=== PATIENT | female | born 1935 | race Caucasian/White ===

== ENCOUNTER 2016-10-30 09:45 | Outpatient (CLI) | payer MEDICARE, OTHER | END 2016-10-30 23:59 | disposition home or self-care (01) | DX: I10 Essential (primary) hypertension (principal); E78.5 Hyperlipidemia, unspecified; E03.9 Hypothyroidism, unspecified; Z79.899 Other long term (current) drug therapy ==

== ENCOUNTER 2016-11-14 11:20 | Emergency (ER) | payer MEDICARE, OTHER | END 2016-11-14 14:44 | disposition home or self-care (01) | DX: R10.13 Epigastric pain (principal); Z83.79 Family history of other diseases of the digestive system; I10 Essential (primary) hypertension; I20.9 Angina pectoris, unspecified; K21.9 Gastro-esophageal reflux disease without esophagitis ==

== ENCOUNTER 2016-11-28 09:50 | Outpatient (CLI) | payer MEDICARE, OTHER ==
[2016-11-28] MEDS ORDERED: SODIUM CHLORIDE 0.9% IV ONE (12:01)
[2016-11-28] MEDS ORDERED: SINCALIDE IV ONE (12:01)
--- NOTE | 2016-11-29 01:50 | Nuclear Medicine Report ---
EXAM: HEPATOBILIARY SCAN WITH CCK/KINEVAC ADMINISTRATION EXAM DATE: 11/28/2016 10:00 AM. CLINICAL HISTORY: ABDOMINAL PAIN. COMPARISON: 11/06/2016. TECHNIQUE: Following the intravenous administration of 5 mCi of Tc99m Mebrofenin, a hepatobiliary sca n was done centered on the liver and gallbladder in multiple sequential images and projections. Following the intravenous administration of 1.9 mcg of CCK/ Kinevac over the course of approximately 45 minutes, dynamic imaging was done and the gallbladder ejection fraction was calculated. FINDINGS: Normal extraction of tracer from the blood pool indicating normal hepatocellular function. The liver size and shape is grossly within normal limits. Appearance of tracer in the biliary tree as early as 10 minutes, within normal limits. Appearance of tracer in the gallbladder as early as 20 minutes, within normal limits, with good progr ession of filling throughout the remainder of the initial hour. Appearance of tracer in the small bowel as early as 30 minutes, within normal limits. With CCK administration, the gallbladder demonstrates an effective contraction. The gallbladder eject ion fraction is calculated to be 92%, well above the lower limit of normal of 40% for a 45-minute inj ection. The patient did not report symptoms after CCK administration. No evidence of enteric reflux into the stomach. No significant collection of tracer remaining in the common bile duct by the end of the study. IMPRESSION: 1. Patent cystic duct. 2. Patent common bile duct. 3. Negative for acute or chronic cholecystitis. 4. No enterogastric bile reflux. 5. Gallbladder ejection fraction of 92%. [facility] Referring Provider Line: [phone] SITE ID: [id number]
== END 2016-11-28 09:51 | disposition home or self-care (01) ==
LOC: DI 09:50
PROVIDERS: ATTEND Family Medicine
DX: R10.9 Unspecified abdominal pain (principal)
CPT/HCPCS: 78227; A9537

== ENCOUNTER 2017-07-14 11:03 | Outpatient (CLI) | payer MEDICARE, OTHER ==
--- NOTE | 2017-07-15 19:07 | XRAY Report ---
DATE OF SERVICE: 07/14/2017 TWO VIEW RIGHT LOWER LE07/14/2017 CLINICAL INDICATION: Pain. FINDINGS: Frontal and lateral views of the right lower leg demonstrate no evidence of fracture. No radiopaque foreign body is seen in the soft tissues. The visualized knee and ankle joints are unrema rkable. IMPRESSION: Normal right lower leg. TD: 07/14/2017 20:19
== END 2017-07-14 11:04 | disposition home or self-care (01) ==
LOC: DI 11:03
PROVIDERS: ATTEND Family Medicine
DX: M79.604 Pain in right leg (principal)

== ENCOUNTER 2017-10-06 09:35 | Outpatient (CLI) | payer MEDICARE, OTHER ==
[2017-10-06 12:43] LABS: BASOPHILS % (AUTO) 0.2 %; EOSINOPHILS # (AUTO) 0.1 10^3/uL (0.0-0.7); EOSINOPHILS % (AUTO) 1.1 %; HGB - HEMOGLOBIN 12.6 g/dL (12.0-16.0); LYMPHOCYTES # (AUTO) 1.8 10^3/uL (1.5-3.5); LYMPHOCYTES % (AUTO) 29.1 %; MEAN CORPUSCULAR HEMOGLOBIN 31.4 pg (27.0-31.0); MEAN CORPUSCULAR HGB CONC 34.1 g/dL (32.0-36.0); MEAN CORPUSCULAR VOLUME 92.1 fL (81.0-99.0); MEAN PLATELET VOLUME 9.1 fL (7.9-10.8); MONOCYTES # (AUTO) 0.4 10^3/uL (0.0-1.0); MONOCYTES % (AUTO) 6.4 %; NEUTROPHILS # (AUTO) 3.9 10^3/uL (1.5-6.6); NEUTROPHILS % (AUTO) 63.2 %; PLT - PLATELET COUNT 225 10^3/uL (130-450); RED CELL DISTRIBUTION WIDTH 14.3 % (12.0-15.0); WHITE BLOOD COUNT 6.2 x10^3/uL (4.8-10.8)
[2017-10-06 12:54] LABS: ALBUMIN 4.2 g/dL (3.2-5.5); ALBUMIN/GLOBULIN RATIO 1.3 (1.0-2.2); BILIRUBIN,TOTAL 0.4 mg/dL (0.2-1.0); CALCIUM 9.7 mg/dL (8.5-10.3); CREATININE 0.7 mg/dL (0.4-1.0); TOTAL PROTEIN 7.5 g/dL (6.7-8.2)
== END 2017-10-06 09:36 | disposition home or self-care (01) ==
LOC: LAB.WCP 09:35
PROVIDERS: ATTEND Family Medicine
DX: R10.9 Unspecified abdominal pain (principal)
CPT/HCPCS: 36415; 80053; 82150; 83690; 85025

== ENCOUNTER 2017-10-20 07:20 | Outpatient (CLI) | payer MEDICARE, OTHER ==
--- NOTE | 2017-10-20 12:43 | Ultrasound Report ---
ABDOMEN ULTRASOUND: 10/20/2017 HISTORY: Abdominal pain. COMPARISON: 11/14/2016. TECHNIQUE: Real time scanning by the tie puller with saved static images reviewed. FINDINGS: LIVER: Normal echotexture and normal direction of portal venous blood flow. Length 16.5 cm. GALLBLADDER: No stones. Wall thickness 2.4 mm. BILIARY TREE: Common bile duct 5.5 mm. PANCREAS: Imaged portions are unremarkable. SPLEEN: 9.1 cm, volume 76 mL, unremarkable. AORTA AND INFERIOR VENA CAVA: Unremarkable. No abdominal aortic aneurysm. KIDNEYS: Right 10.3 cm longitudinally. Mild prominence of the right renal pelvis is similar to prior. Left kidney 9.8 cm longitudinal. There is a cortical 8 x 9 x 8 mm cyst in the inferior left kidney with an associated tiny calcification. FREE FLUID: None. IMPRESSION: NO ACUTE FINDINGS OR SIGNIFICANT INTERVAL CHANGE COMPARED TO THE PRIOR ULTRASOUND OF 11/14/2016. NO EVIDENCE OF GALLSTONES TO EXPLAIN THE PATIENT'S PAIN. TD: 10/20/2017 12:42
== END 2017-10-20 07:21 | disposition home or self-care (01) ==
LOC: DI 07:20
PROVIDERS: ATTEND Family Medicine
DX: R10.9 Unspecified abdominal pain (principal)
CPT/HCPCS: 76700

== ENCOUNTER 2018-05-18 08:18 | Outpatient (CLI) | payer MEDICARE, OTHER ==
[2018-05-18 08:58] LABS: BASOPHILS % (AUTO) 0.5 %; EOSINOPHILS # (AUTO) 0.1 10^3/uL (0.0-0.7); EOSINOPHILS % (AUTO) 2.8 %; LYMPHOCYTES # (AUTO) 1.5 10^3/uL (1.5-3.5); LYMPHOCYTES % (AUTO) 30.7 %; MEAN CORPUSCULAR HEMOGLOBIN 32.3 pg (27.0-31.0); MEAN CORPUSCULAR HGB CONC 34.6 g/dL (32.0-36.0); MEAN CORPUSCULAR VOLUME 93.3 fL (81.0-99.0); MEAN PLATELET VOLUME 8.4 fL (7.9-10.8); MONOCYTES # (AUTO) 0.4 10^3/uL (0.0-1.0); MONOCYTES % (AUTO) 8.6 %; NEUTROPHILS # (AUTO) 2.9 10^3/uL (1.5-6.6); NEUTROPHILS % (AUTO) 57.4 %; PLT - PLATELET COUNT 224 10^3/uL (130-450); RED BLOOD COUNT 3.71 10^6/uL (4.20-5.40); RED CELL DISTRIBUTION WIDTH 14.2 % (12.0-15.0)
[2018-05-18 09:19] LABS: ALBUMIN/GLOBULIN RATIO 1.3 (1.0-2.2); ALKALINE PHOSPHATASE 59 IU/L (42-121); ALT ALANINE AMINOTRANSFERASE 15 IU/L (10-60); AST ASPARTATE AMINOTRANSFERASE 25 IU/L (10-42); BILIRUBIN,TOTAL 0.5 mg/dL (0.2-1.0); BUN - BLOOD UREA NITROGEN 23 mg/dL (6-20); CALCIUM 9.6 mg/dL (8.5-10.3); CARBON DIOXIDE - CO2 27 mmol/L (21-32); CHLORIDE 107 mmol/L (101-111); CHOL/HDL RATIO 3.3 (<4.4); CHOLESTEROL 248 mg/dL; CREATININE 0.7 mg/dL (0.4-1.0); GFR - MDRD 81 (>89); GLUCOSE 114 mg/dL (70-100); HDL CHOLESTEROL 75 mg/dL; LDL CHOLESTEROL,CALCULATED 158 mg/dL; LDL/HDL RATIO 2.1 (<4.4); SODIUM 141 mmol/L (135-145); TOTAL PROTEIN 7.2 g/dL (6.7-8.2); VLDL CHOLESTEROL 15 mg/dL
== END 2018-05-18 08:19 | disposition home or self-care (01) ==
LOC: LAB 08:18
PROVIDERS: ATTEND Nurse Practitioner
DX: I10 Essential (primary) hypertension (principal); E03.9 Hypothyroidism, unspecified
CPT/HCPCS: 36415; 80053; 80061; 83721; 84443; 85025

== ENCOUNTER 2018-05-20 14:51 | Outpatient (CLI) | payer MEDICARE, OTHER ==
--- NOTE | 2018-05-21 09:50 | DEXA Report ---
Reason: OSTEOPOROSIS Procedure Date: 05/20/2018 Accession Number: [id number] / [id number] Procedure: DEX - Dexa Spine and/or Hip CPT Code: FULL RESULT: EXAM: Dexa Spine and/or Hip DATE: 05/20/2018 3:46 PM CLINICAL HISTORY: OSTEOPOROSIS TECHNIQUE: Dual energy x-ray absorptiometry (DXA) was performed on a [employer] System. Regions measured are the AP Spine, femoral neck, and if needed forearm. COMPARISON: None. In accordance with the International Society for Clinical Densitometry (ISCD) guidelines, data from previous exams may be reanalyzed using current recommendations and techniques. This is done to allow a more accurate basis for comparison with the current study. FINDINGS: The data for the lumbar spine is as follows: BMD (g/cm/cm) T-SCORE Z-SCORE REGION L1 0.843 -2.4 -0.5 L2 0.893 -2.6 -0.7 L3 0.876 -2.7 -0.8 L4 0.925 -2.3 -0.4 TOTAL 0.887 -2.4 -0.6 NOTE: All evaluable vertebrae are used for classification The data for the hip is as follows: BMD (g/cm/cm) T-SCORE Z-SCORE REGION Neck 0.620 -3.0 -0.8 TOTAL 0.688 -2.5 -0.5 NOTE: The femoral neck or total proximal femur, whichever is lowest, is used for classification. IMPRESSION: THE WHO CLASSIFICATION BASED ON THE INTERNATIONAL REFERENCE STANDARD IS OSTEOPOROSIS. THE FRACTURE RISK IS HIGH. RECOMMENDATION: Patients with diagnosis of osteoporosis or osteopenia should have regular bone mineral density assessment. For those eligible for Medicare, routine testing is allowed once every 2 years. Testing frequency can be increased for patients who have rapidly progressing disease or for those who are receiving medical therapy to restore bone mass. COMMENT: World Health Organization (WHO) definitions for osteoporosis and osteopenia: NORMAL BMD: T-score at -1.0 or higher, fracture risk is low OSTEOPENIA BMD: T-score between -1.0 and -2.5, fracture risk is increased. OSTEOPOROSIS BMD: T-score at -2.5 or lower, fracture risk is high. National Osteoporosis Foundation recommends: 1. Obtain adequate dietary calcium (at least 1200 mg per day) and vitamin D (400-800 international units per day). 2. Participate, as appropriate, in regular weightbearing and muscle-strengthening exercise. 3. Avoid tobacco use and reduce alcohol and caffeine intake. 4. For more detailed information see the website at www.NOF.org.
== END 2018-05-20 14:52 | disposition home or self-care (01) ==
LOC: DI 14:51
PROVIDERS: ATTEND Nurse Practitioner
DX: M81.0 Age-related osteoporosis without current pathological fracture (principal)
CPT/HCPCS: 77080

== ENCOUNTER 2018-10-01 12:14 | Emergency (ER) | payer MEDICARE, OTHER ==
--- NOTE | 2018-10-01 12:39 | ED Physician Documentation ---
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 HEENT: Tonsil/Adenoidectomy - Present Medications Home Medications: Ambulatory Orders Medication Instructions Recorded Confirmed Sertraline [Zoloft] 25 mg PO DAILY 08/03/14 04/01/16 Olmesartan Medoxomil [Benicar] 10 mg PO DAILY 11/19/14 04/01/16 Ubidecarenone [Co Q-10] 10 mg PO DAILY 03/31/16 04/01/16 Ferrous Gluconate [Iron] 240 mg PO 10/01/18 10/01/18 - Allergies Allergies/Adverse Reactions: Allergies Allergy/AdvReac Type Severity Reaction Status Date / Time ergot alkaloids Allergy Rash Verified 10/01/18 12:37 - Social History Does the pt smoke?: No Smoking Status: Never smoker Does the pt drink ETOH?: No Does the pt have substance abuse?: No - Immunizations Immunizations are current?: Yes - POLST Patient has POLST: No Results - Vitals Vitals: Vital Signs - 24 hr 10/01/18 12:34 Temperature 36.5 C Heart Rate 82 Respiratory 18 Rate Blood Pressure 124/77 O2 Saturation 100 Oxygen O2 Source Room air
--- NOTE | 2018-10-01 12:45 | ED Physician Documentation ---
PD HPI GI BLEED - Stated complaint Stated Complaint: BLACK STOOL - Chief complaint Chief Complaint: Abd Pain - History obtained from History obtained from: Patient - History of Present Illness Timing - onset: Other (She started a Medrol Dosepak on September 19 for back pain. Since then she has had dark and tarry stools with mild nausea but no overt abdominal pain. She does not have a history of internal bleeding or ulcers.) Review of Systems Constitutional: reports: Fatigue. denies: Fever, Chills Cardiac: denies: Chest pain / pressure, Palpitations Respiratory: denies: Dyspnea, Cough GI: reports: Nausea. 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 10/01/18 - Allergies Allergies/Adverse Reactions: Allergies Allergy/AdvReac Type Severity Reaction Status Date / Time ergot alkaloids Allergy Rash Verified 10/01/18 12:37 - Social History Does the pt smoke?: No Smoking Status: Never smoker Does the pt drink ETOH?: No Does the pt have substance abuse?: No - Family History Family history: reports: Non contributory - Immunizations Immunizations are current?: Yes - POLST Patient has POLST: No PD ED PE NORMAL - Vitals Vital signs reviewed: Yes - General General: Alert and oriented X 3, No acute distress, Other (not pale) - HEENT HEENT: PERRL, EOMI - Abdomen Abdomen: Normal bowel sounds, Soft, Non tender - Rectal Rectal: Other (with [facility], brown guaiac neg stool) - Back Back: No CVA TTP, No spinal TTP - Derm Derm: Normal color, Warm and dry - Extremities Extremities: No edema, No calf tenderness / cord - Neuro Neuro: Alert and oriented X 3, Normal speech - Psych Psych: Normal mood, Normal affect Results - Vitals Vitals: Vital Signs - 24 hr 10/01/18 12:34 Temperature 36.5 C Heart Rate 82 Respiratory 18 Rate Blood Pressure 124/77 O2 Saturation 100 Oxygen O2 Source Room air - Labs Labs: Laboratory Tests 10/01/18 13:25 WBC 5.5 RBC 3.81 L Hgb 12.1 Hct 35.5 L MCV 93.3 MCH 31.8 H MCHC 34.1 RDW 14.7 Plt Count 198 MPV 8.7 PD MEDICAL DECISION MAKING - ED course ED course: This is an 83-year-old woman who had dark and tarry stools at home after a course of a Medrol Dosepak for her back. She is guaiac negative here with reassuring H&H. We will start her on a PPI and she needs something else for her back. Departure - Departure Disposition: 01 Home, Self Care Clinical Impression: Dark stools Back pain Qualifiers: Back pain location: low back pain Chronicity: acute Back pain laterality: unspecified Sciatica presence: unspecified whether sciatica present Qualified Code(s): M54.5 - Low back pain Condition: Good Record reviewed to determine appropriate education?: Yes Instructions: ED Neck Back Pain General Prescriptions: Hydrocodone/Acetaminophen [Hydrocodon-Acetaminophen 5-325] 1 - 2 each PO Q6H PRN #14 tablet PRN Reason: pain Omeprazole 20 mg PO DAILY #30 capsule. Comments: There is no blood apparent in your stool today and you are not at all anemic. The omeprazole should help with your stomach symptoms and we are trying something stronger for your back. Follow-up with Dr. Dawkins and your primary care physician.
[2018-10-01 13:38] LABS: HGB - HEMOGLOBIN 12.1 g/dL (12.0-16.0); MEAN CORPUSCULAR HEMOGLOBIN 31.8 pg (27.0-31.0); MEAN CORPUSCULAR HGB CONC 34.1 g/dL (32.0-36.0); MEAN CORPUSCULAR VOLUME 93.3 fL (81.0-99.0); MEAN PLATELET VOLUME 8.7 fL (7.9-10.8); RED BLOOD COUNT 3.81 10^6/uL (4.20-5.40); RED CELL DISTRIBUTION WIDTH 14.7 % (12.0-15.0); WHITE BLOOD COUNT 5.5 x10^3/uL (4.8-10.8)
[2018-10-01 13:57] VITALS: BP 140/77
== END 2018-10-01 14:04 | disposition home or self-care (01) ==
LOC: ED 12:14
DX: R19.5 Other fecal abnormalities (principal); M54.5 Low back pain; I10 Essential (primary) hypertension; E03.9 Hypothyroidism, unspecified
CPT/HCPCS: 36415; 85027; 86900; 86901; 99283

== ENCOUNTER 2019-01-11 08:00 | Outpatient (CLI) | payer MEDICARE, OTHER ==
[2019-01-11 16:17] LABS: H. PYLORIS ANTIGEN STL NEGATIVE (Negative)
== END 2019-01-11 08:01 | disposition home or self-care (01) ==
LOC: LAB.R 08:00
PROVIDERS: ATTEND Nurse Practitioner
DX: R14.0 Abdominal distension (gaseous) (principal); Z86.19 Personal history of other infectious and parasitic diseases
CPT/HCPCS: 87338

== ENCOUNTER 2019-03-04 14:13 | Outpatient (CLI) | payer MEDICARE, OTHER ==
[2019-03-04 14:30] LABS: BASOPHILS % (AUTO) 0.3 %; EOSINOPHILS # (AUTO) 0.1 10^3/uL (0.0-0.7); EOSINOPHILS % (AUTO) 1.9 %; HGB - HEMOGLOBIN 11.8 g/dL (12.0-16.0); LYMPHOCYTES % (AUTO) 33.7 %; MEAN CORPUSCULAR HEMOGLOBIN 32.1 pg (27.0-31.0); MEAN CORPUSCULAR HGB CONC 32.8 g/dL (32.0-36.0); MEAN CORPUSCULAR VOLUME 97.8 fL (81.0-99.0); MEAN PLATELET VOLUME 10.2 fL (7.9-10.8); MONOCYTES # (AUTO) 0.5 10^3/uL (0.0-1.0); MONOCYTES % (AUTO) 7.6 %; NEUTROPHILS # (AUTO) 3.3 10^3/uL (1.5-6.6); PLT - PLATELET COUNT 223 10^3/uL (130-450); RED BLOOD COUNT 3.68 10^6/uL (4.20-5.40); RED CELL DISTRIBUTION WIDTH 13.7 % (12.0-15.0); WHITE BLOOD COUNT 5.9 x10^3/uL (4.8-10.8)
== END 2019-03-04 14:14 | disposition home or self-care (01) ==
LOC: LAB 14:13
PROVIDERS: ATTEND Nurse Practitioner
DX: R53.83 Other fatigue (principal); Z79.899 Other long term (current) drug therapy
CPT/HCPCS: 36415; 82306; 82607; 85025

== ENCOUNTER 2019-05-13 12:54 | Outpatient (CLI) | payer MEDICARE, OTHER ==
--- NOTE | 2019-05-15 05:35 | XRAY Report ---
Reason: DEGENERATIVE DISC DISEASE,CERVICAL SPINE Procedure Date: 05/13/2019 Accession Number: [id number] / [id number] Procedure: XR - Cervical Spine 2 View CPT Code: FULL RESULT: EXAM: CERVICAL SPINE RADIOGRAPHY EXAM DATE: 05/13/2019 01:14 PM. CLINICAL HISTORY: DEGENERATIVE DISC DISEASE,CERVICAL SPINE. COMPARISONS: None. TECHNIQUE: 3 views. FINDINGS: Alignment: Normal. No spondylolisthesis or scoliosis. Bones: The cervical vertebral bodies and posterior elements are well visualized from the skull base through C7-T1. No fractures or bone lesions. Disks: Moderate degenerative disk disease. Facets: Moderate facet arthropathy. Soft Tissues: Normal. No prevertebral soft tissue swelling. The visualized lung apices are clear. IMPRESSION: Moderate degenerative changes. [facility]
== END 2019-05-13 12:55 | disposition home or self-care (01) ==
LOC: DI 12:54
PROVIDERS: ATTEND Nurse Practitioner
DX: M50.30 Other cervical disc degeneration, unspecified cervical region (principal); M47.812 Spondylosis without myelopathy or radiculopathy, cervical region
CPT/HCPCS: 72040

== ENCOUNTER 2020-03-11 18:56 | Emergency (ER) | payer MEDICARE, OTHER ==
--- NOTE | 2020-03-11 19:26 | ED Physician Documentation ---
PD HPI UPPER EXT INJURY - Stated complaint Stated Complaint: RT FINGER INJ - Chief complaint Chief Complaint: Trauma Ext - History obtained from History obtained from: Patient (She was gardening just prior to arrival and tripped and fell and as she went down her finger impacted on the concrete. 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 : None, Frequency, Other HEENT: Chronic vision loss, Chronic hearing loss Psych: Anxiety, Panic attacks Musculoskeletal: Osteoarthritis, Chronic back pain Derm: None - Past Surgical History Past Surgical History: Yes General: Appendectomy, 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 10/01/18 - Allergies Allergies/Adverse Reactions: Allergies Allergy/AdvReac Type Severity Reaction Status Date / Time ergot alkaloids Allergy Rash Verified 03/11/20 19:19 - Social History Does the pt smoke?: No Smoking Status: Never smoker Does the pt drink ETOH?: No Does the pt have substance abuse?: No - Immunizations Immunizations are current?: Yes - POLST Patient has POLST: No PD ED PE NORMAL - Vitals Vital signs reviewed: Yes - General General: Alert and oriented X 3, No acute distress - Extremities Extremities: Other (The finger appears to have a slight rotational deformity centered about the PIP with tenderness there and limited range of motion. Normal neurovascular function of the tip. The remainder of the right hand is nontender.) - Neuro Neuro: Alert and oriented X 3, Normal speech Results - Vitals Vitals: Vital Signs - 24 hr 03/11/20 19:10 Temperature 36.6 C Heart Rate 82 Respiratory 16 Rate Blood Pressure 167/67 H O2 Saturation 99 Oxygen O2 Source Room air - Rads (name of study) X-rays of the right middle finger Radiology: EMP read contemporaneously (Osteoarthritis without acute fracture) Departure - Departure Disposition: 01 Home, Self Care Clinical Impression: Sprain of right middle finger Qualifiers: Encounter type: initial encounter Sprain of finger site: interphalangeal joint Qualified Code(s): S63.632A - Sprain of interphalangeal joint of right middle finger, initial encounter Condition: Good Record reviewed to determine appropriate education?: Yes Instructions: ED Sprain Finger Comments: You can qiana tape the fingers as was done tonight for comfort. Return for new or worsening symptoms. Tylenol as needed for pain. You can also ice it.
--- NOTE | 2020-03-11 19:55 | XRAY Report ---
PROCEDURE: Finger(s) RT INDICATIONS: finger inj TECHNIQUE: AP hand, 3 views of the right finger(s) acquired. COMPARISON: None FINDINGS: Bones: No fractures or dislocations. No suspicious bony lesions. Joint space narrowing and periart icular osteophyte formation at the scaphotrapezial, first metacarpal joint, as well as the interphala ngeal joints of the digits. Soft tissues: No suspicious soft tissue calcifications. IMPRESSION: Osteoarthritis. No acute fracture. No osseous lesion. If symptoms and/or clinical suspicion for patho logy continue, further assessment with repeat plain films, or advanced imaging (e.g., CT, MRI, or bon e scan) is recommended for further assessment. Reviewed by: Letty Klein MD on 03/11/2020 7:54 PM PDT Approved by: Letty Klein MD on 03/11/2020 7:54 PM PDT Station ID: [id number]
[2020-03-11 20:15] VITALS: BP 147/84
== END 2020-03-11 20:14 | disposition home or self-care (01) ==
LOC: ED 18:56
DX: S63.632A Sprain of interphalangeal joint of right middle finger, initial encounter (principal); W01.198A Fall on same level from slipping, tripping and stumbling with subsequent striking against other object, initial encounter; Y93.H2 Activity, gardening and landscaping; I10 Essential (primary) hypertension
CPT/HCPCS: 73140; 99282; 99283

== ENCOUNTER 2020-03-15 09:01 | Outpatient (CLI) | payer MEDICARE, OTHER | END 2020-03-15 09:02 | disposition home or self-care (01) | LOC: DI 09:01 | PROVIDERS: ATTEND Nurse Practitioner Family | DX: R06.02 Shortness of breath (principal); R53.83 Other fatigue; I35.1 Nonrheumatic aortic (valve) insufficiency; I27.20 Pulmonary hypertension, unspecified | CPT/HCPCS: 93306 ==

== ENCOUNTER 2020-06-19 15:59 | Outpatient (CLI) | payer MEDICARE, OTHER ==
--- NOTE | 2020-06-19 16:55 | XRAY Report ---
PROCEDURE: Shoulder 3 View LT INDICATIONS: PAIN IN LEFT SHOULDER TECHNIQUE: 3 views of the shoulder were acquired. COMPARISON: None. FINDINGS: Bones: No acute fractures or dislocations. No suspicious bony lesions. Visualized ribs appear inta ct. Severe degenerative changes are seen in the glenohumeral joint with full-thickness joint space n arrowing and marginal osteophyte formation. Moderate degenerative changes are seen in the acromioclav icular joint. Soft tissues: No suspicious soft tissue calcifications. IMPRESSION: Severe glenohumeral osteoarthrosis and moderate acromioclavicular osteoarthrosis. No acu te osseous abnormality is seen. Reviewed by: Leonides Vergara MD on 06/19/2020 3:54 PM [place] Approved by: Leonides Vergara MD on 06/19/2020 3:54 PM [facility] Station ID: [id number]
== END 2020-06-19 16:00 | disposition home or self-care (01) ==
LOC: DI 15:59
PROVIDERS: ATTEND Family Medicine
DX: M19.012 Primary osteoarthritis, left shoulder (principal)

== ENCOUNTER 2020-10-10 09:35 | Outpatient (CLI) | payer MEDICARE, OTHER ==
[2020-10-10 12:43] LABS: ALBUMIN 4.3 g/dL (3.2-5.5); ALBUMIN/GLOBULIN RATIO 1.3 (1.0-2.2); BILIRUBIN,TOTAL 0.8 mg/dL (0.2-1.0); CALCIUM 10.4 mg/dL (8.5-10.3); CREATININE 0.7 mg/dL (0.4-1.0); POTASSIUM 4.2 mmol/L (3.5-5.0); TOTAL PROTEIN 7.6 g/dL (6.7-8.2)
== END 2020-10-10 23:59 | disposition home or self-care (01) ==
LOC: LAB.WCP 09:35
PROVIDERS: ATTEND Nurse Practitioner
DX: R51.9 Headache, unspecified (principal); R29.6 Repeated falls; R26.81 Unsteadiness on feet
CPT/HCPCS: 36415; 80053

== ENCOUNTER 2020-12-10 10:54 | Outpatient (CLI) | payer MEDICARE, OTHER ==
--- NOTE | 2020-12-10 13:48 | XRAY Report ---
PROCEDURE: Knee 3 View RT INDICATIONS: OSTEOARTHRITIS OF R KNEE TECHNIQUE: 3 views of the right knee(s) were acquired. COMPARISON: None. FINDINGS: Bones: No fractures or dislocations. No suspicious bony lesions. There is mild joint space narrowi ng at the medial compartment. This also is present to a slightly greater degree at the lateral facet of the patellofemoral joint. Soft tissues: No joint effusion. No suspicious soft tissue calcifications. IMPRESSION: Medial compartment mild degenerative osteoarthritis, patellofemoral joint lateral facet mild to moderate degenerative joint space narrowing. No effusion or loose body seen. No trauma found. Reviewed by: Celestino Espitia MD on 12/10/2020 1:46 PM PDT Approved by: Celestino Espitia MD on 12/10/2020 1:46 PM PDT Station ID: [id number]
== END 2020-12-10 23:59 | disposition home or self-care (01) ==
LOC: DI.N 10:54
PROVIDERS: ATTEND Physician Assistant Medical
DX: M17.11 Unilateral primary osteoarthritis, right knee (principal)

== ENCOUNTER 2021-01-24 14:53 | Emergency (ER) | payer MEDICARE, OTHER ==
[2021-01-24 15:52] LABS: BASOPHILS % (AUTO) 0.5 %; EOSINOPHILS # (AUTO) 0.1 10^3/uL (0.0-0.7); EOSINOPHILS % (AUTO) 1.1 %; HCT - HEMATOCRIT 36.3 % (37.0-47.0); HGB - HEMOGLOBIN 11.8 g/dL (12.0-16.0); LYMPHOCYTES # (AUTO) 1.8 10^3/uL (1.5-3.5); LYMPHOCYTES % (AUTO) 26.6 %; MEAN CORPUSCULAR HEMOGLOBIN 31.8 pg (27.0-31.0); MEAN CORPUSCULAR HGB CONC 32.5 g/dL (32.0-36.0); MEAN CORPUSCULAR VOLUME 97.8 fL (81.0-99.0); MEAN PLATELET VOLUME 10.5 fL (7.9-10.8); MONOCYTES # (AUTO) 0.5 10^3/uL (0.0-1.0); MONOCYTES % (AUTO) 6.8 %; NEUTROPHILS # (AUTO) 4.3 10^3/uL (1.5-6.6); NEUTROPHILS % (AUTO) 64.4 %; PLT - PLATELET COUNT 257 10^3/uL (130-450); RED BLOOD COUNT 3.71 10^6/uL (4.20-5.40); RED CELL DISTRIBUTION WIDTH 13.7 % (12.0-15.0); WHITE BLOOD COUNT 6.7 x10^3/uL (4.8-10.8)
[2021-01-24 16:00] LABS: BILIRUBIN,URINE NEGATIVE (NEGATIVE); GLUCOSE, URINE (UA) NEGATIVE (NEGATIVE); KETONES,URINE (UA) NEGATIVE (NEGATIVE); LEUKOCYTE ESTERASE, URINE NEGATIVE (NEGATIVE); NITRITE,URINE NEGATIVE (NEGATIVE); OCCULT BLOOD,URINE NEGATIVE (NEGATIVE); PROTEIN,URINE NEGATIVE (NEGATIVE); UROBILINOGEN,URINE 0.2 (NORMAL) E.U./dL (NORMAL)
[2021-01-24 16:01] LABS: CLARITY,URINE CLEAR (CLEAR)
[2021-01-24] MEDS ORDERED: SODIUM CHLORIDE 0.9% 1,000 ML IV STA (16:02)
[2021-01-24] MEDS ORDERED: METOCLOPRAMIDE 10 MG/2 ML VIAL IVP STA (16:02)
[2021-01-24 16:04] LABS: ALBUMIN 4.3 g/dL (3.2-5.5); ALBUMIN/GLOBULIN RATIO 1.4 (1.0-2.2); BILIRUBIN,TOTAL 0.8 mg/dL (0.2-1.0); CALCIUM 9.9 mg/dL (8.5-10.3); CREATININE 0.9 mg/dL (0.4-1.0); POTASSIUM 3.7 mmol/L (3.5-5.0); TOTAL PROTEIN 7.4 g/dL (6.7-8.2)
--- NOTE | 2021-01-24 16:08 | ED Physician Documentation ---
PD HPI FOCAL NEURO - Stated complaint Stated Complaint: DIZZY,NASSAR - Chief complaint Chief Complaint: Neuro - History obtained from History obtained from: Patient - Additional information Additional information: This is a chevy 85-year-old woman who is on Benicar 40 mg once a day for blood pressure. She has had episodic dizziness and disequilibrium for some time. Per her she reportedly had an MRI done at another facility about a month ago for same which was negative. More acutely today she felt more dizzy which is difficult for her to describe. It started this morning on awakening. She felt like she had to keep her eyes closed. She felt like she was wobbly. It was associated with a moderate diffuse and frontal headache, light sensitivity and dizziness. The dizziness is mostly better now but she feels quite fatigued and still has a headache. 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 10/01/18 Metoclopramide [Reglan] 10 mg PO Q6H PRN #20 tablet 01/24/21 - Allergies Allergies/Adverse Reactions: Allergies Allergy/AdvReac Type Severity Reaction Status Date / Time ergot alkaloids Allergy Rash Verified 03/11/20 19:19 - Social History Does the pt smoke?: No Smoking Status: Never smoker Does the pt drink ETOH?: No Does the pt have substance abuse?: No - Immunizations Immunizations are current?: Yes - POLST Patient has POLST: No PD ED PE NORMAL - Vitals Vital signs reviewed: Yes - General General: Alert and oriented X 3, No acute distress - HEENT HEENT: PERRL, EOMI, Other (Mild horizontal nystagmus on far leftward gaze.) - Neck Neck: Supple, no meningeal sign, No bony TTP - Cardiac Cardiac: RRR, No murmur - Respiratory Respiratory: No respiratory distress, Clear bilaterally - Abdomen Abdomen: Non tender - Back Back: No CVA TTP, No spinal TTP - Derm Derm: Normal color, Warm and dry - Extremities Extremities: No deformity, No tenderness to palpate, No edema, No calf tenderness / cord - Neuro Neuro: Alert and oriented X 3, log preparer 2-12 intact, No motor deficit, No sensory deficit, Normal speech, Other (Normal sortww-cl-urad testing, normal gait, negative Romberg) Results - Vitals Vitals: Vital Signs - 24 hr 01/24/21 15:04 Temperature 37.5 C Heart Rate 78 Respiratory 16 Rate Blood Pressure 146/69 H O2 Saturation 99 Oxygen O2 Source Room air - EKG (time done) 1512 Rate: Rate (enter#) (76) Rhythm: NSR [place]: Normal QRS: LVH Ischemia: Normal ST segments - Labs Labs: Laboratory Tests 01/24/21 01/24/21 01/24/21 15:26 15:46 15:46 WBC 6.7 RBC 3.71 L Hgb 11.8 L Hct 36.3 L MCV 97.8 MCH 31.8 H MCHC 32.5 RDW 13.7 Plt Count 257 MPV 10.5 Neut # (Auto) 4.3 Lymph # (Auto) 1.8 [place] # (Auto) 0.5 Eos # (Auto) 0.1 Baso # (Auto) 0.0 Absolute Nucleated RBC 0.00 Nucleated RBC % 0.0 ESR Sodium 136 Potassium 3.7 Chloride 98 L Carbon Dioxide 29 Anion Gap 9.0 BUN 22 H Creatinine 0.9 Estimated GFR (MDRD) 60 L Glucose 122 H Calcium 9.9 Total Bilirubin 0.8 AST 29 ALT 19 Alkaline Phosphatase 55 Troponin I High Sens C-Reactive Protein Total Protein 7.4 Albumin 4.3 Globulin 3.1 Albumin/Globulin Ratio 1.4 Lipase 30 Urine Color STRAW Urine Clarity CLEAR Urine pH 7.0 Ur Specific [place] <=1.005 Urine Protein NEGATIVE Urine Glucose (UA) NEGATIVE Urine Ketones NEGATIVE Urine Occult Blood NEGATIVE Urine Nitrite NEGATIVE Urine Bilirubin NEGATIVE Urine Urobilinogen 0.2 (NORMAL) Ur Leukocyte Esterase NEGATIVE Ur Microscopic Review NOT INDICATED Urine Culture Comments NOT INDICATED 01/24/21 01/24/21 01/24/21 15:46 15:46 15:46 WBC RBC Hgb Hct MCV MCH MCHC RDW Plt Count MPV Neut # (Auto) Lymph # (Auto) [place] # (Auto) Eos # (Auto) Baso # (Auto) Absolute Nucleated RBC Nucleated RBC % ESR 31 H Sodium Potassium Chloride Carbon Dioxide Anion Gap BUN Creatinine Estimated GFR (MDRD) Glucose Calcium Total Bilirubin AST ALT Alkaline Phosphatase Troponin I High Sens 5.6 C-Reactive Protein 1.0 Total Protein Albumin Globulin Albumin/Globulin Ratio Lipase Urine Color Urine Clarity Urine pH Ur Specific [place] Urine Protein Urine Glucose (UA) Urine Ketones Urine Occult Blood Urine Nitrite Urine Bilirubin Urine Urobilinogen Ur Leukocyte Esterase Ur Microscopic Review Urine Culture Comments PD MEDICAL DECISION MAKING - ED course ED course: Is a chevy 85-year-old woman has had ongoing problems with dizziness and headaches. Labs were checked, she has a chronic stable anemia. ESR and CRP values are not consistent with giant cell arteritis. CTA of the head without contrast was normal. She felt better after IV fluids and Reglan. ENT follow-up was advised. Departure - Departure Disposition: 01 Home, Self Care Clinical Impression: Frontal headache, Dizziness Condition: Good Record reviewed to determine appropriate education?: Yes Instructions: ED Dizziness UKO, ED Vertigo Unspecified Prescriptions: Metoclopramide [Reglan] 10 mg PO Q6H PRN #20 tablet PRN Reason: nausea or headache Comments: Your blood pressure came down to 146/69 while in the department. As such I do not recommend increasing your blood pressure medications at this juncture, but she should follow-up with your primary care physician. I also recommend following up with Dr. Venegas given your specific symptoms seem to be referable to an ear problem given the tinnitus, vertigo. The phone number there is [phone].
--- NOTE | 2021-01-24 16:41 | CT Report ---
PROCEDURE: HEAD WO INDICATIONS: Headache TECHNIQUE: Noncontrast 4.5 mm thick angled axial sections acquired from the foramen magnum to the vertex. For r adiation dose reduction, the following was used: automated exposure control, adjustment of mA and/or kV according to patient size. COMPARISON: 11/19/2014 FINDINGS: Image quality: Excellent. CSF spaces: Basal cisterns are patent. No extra-axial fluid collections. Ventricles are normal in size and shape. Brain: No midline shift. No intracranial masses or hemorrhage. Handy-white matter interface is norm al. Skull and face: Calvarium and visualized facial bones are intact, without suspicious lesions. Sinuses: Visualized sinuses and mastoids are clear. IMPRESSION: No acute intracranial abnormality. Reviewed by: Yakov Newman MD on 01/24/2021 4:40 PM PDT Approved by: Yakov Newman MD on 01/24/2021 4:40 PM PDT Station ID: [id number]
[2021-01-24 17:35] VITALS: BP 154/57
== END 2021-01-24 17:35 | disposition home or self-care (01) ==
LOC: ED 14:53
DX: R42 Dizziness and giddiness (principal); R51.9 Headache, unspecified; D64.9 Anemia, unspecified; I10 Essential (primary) hypertension
CPT/HCPCS: 36415; 70450; 80053; 81003; 83690; 84484; 85025; 85651; 86140; 93005; 96361; 96374; 99284; J2765; 81001; 87086

== ENCOUNTER 2021-02-27 10:00 | Outpatient (CLI) | payer MEDICARE, OTHER ==
--- NOTE | 2021-02-27 16:51 | XRAY Report ---
PROCEDURE: Cervical Spine Complete INDICATIONS: DEGENERATIVE DISC DISEASE, CERVICAL SPINE TECHNIQUE: 6 view(s) of the cervical spine were acquired. COMPARISON: None. FINDINGS: Bones: No fractures or dislocations to the C7-T1 level. The lateral masses of C1 appear intact on t he odontoid view. No suspicious bony lesions. Multilevel moderate disc space narrowing, most severe at C5-6, C6-7 with uncovertebral hypertrophy. Soft tissues: No prevertebral soft tissue swelling. IMPRESSION: Multilevel degenerative changes. Reviewed by: Jackie Pichardo MD on 02/27/2021 4:49 PM PDT Approved by: Jackie Pichardo MD on 02/27/2021 4:49 PM PDT Station ID: [id number]
== END 2021-02-27 10:01 | disposition home or self-care (01) ==
LOC: DI 10:00
PROVIDERS: ATTEND Family Medicine
DX: M47.812 Spondylosis without myelopathy or radiculopathy, cervical region (principal)

== ENCOUNTER 2021-05-10 08:00 | Outpatient (CLI) | payer MEDICARE, OTHER ==
--- NOTE | 2021-05-11 11:29 | XRAY Report ---
PROCEDURE: Hand 3 View RT INDICATIONS: INJ OF DIGITAL NERVE, RT THUMB TECHNIQUE: 3 views of the hand(s) acquired. COMPARISON: None FINDINGS: Bones: No focal abnormality can be seen of the thumb. No fractures or dislocations. No suspicious b lety lesions. Relatively prominent degenerative changes are seen, which are worst involving the distal interphalang eal joints and the radial aspect of the carpus. Soft tissues: No suspicious soft tissue calcifications. IMPRESSION: A focal abnormality of the thumb is not seen. Advanced degenerative changes can be seen on these plain films. If it would be helpful for clinical management decision making, please consider a dedicated follow-up thumb MRI for further evaluation (assuming that there is no contraindication). Reviewed by: Maxwell Serrato MD on 05/11/2021 10:27 AM ALEJANDRA Approved by: Maxwell Serrato MD on 05/11/2021 10:27 AM ALEJANDRA Station ID: [id number]
== END 2021-05-10 08:01 | disposition home or self-care (01) ==
LOC: DI 08:00
PROVIDERS: ATTEND Family Medicine
DX: S64.31XA Injury of digital nerve of right thumb, initial encounter (principal); M19.041 Primary osteoarthritis, right hand

== ENCOUNTER 2021-05-21 14:40 | Outpatient (CLI) | payer MEDICARE, OTHER ==
--- NOTE | 2021-05-23 02:22 | XRAY Report ---
PROCEDURE: Wrist 4 View RT INDICATIONS: R WRIST PX TECHNIQUE: 4 views of the wrist were acquired. Images became available for review on 05/22/2021. COMPARISON: X-ray hand 05/11/2021 FINDINGS: Bones: No fractures or dislocations. No suspicious bony lesions. Prominent first CMC degenerative narrowing is present. Scaphoid view: No visualized fracture. Soft tissues: No suspicious soft tissue calcifications. IMPRESSION: No visualized acute fracture or dislocation. However, occult injury cannot be excluded. Recommend fabiana rt interval imaging follow-up in 7-10 days as clinically indicated for additional evaluation. Reviewed by: Jackie Pichardo MD on 05/23/2021 1:45 AM PDT Approved by: Jackie Pichardo MD on 05/23/2021 1:45 AM PDT Station ID: [id number]
== END 2021-05-21 23:59 | disposition home or self-care (01) ==
LOC: DI.N 14:40
PROVIDERS: ATTEND Family Medicine
DX: M25.531 Pain in right wrist (principal); S64.31XA Injury of digital nerve of right thumb, initial encounter

== ENCOUNTER 2021-07-02 10:15 | Outpatient (CLI) | payer MEDICARE, OTHER ==
--- NOTE | 2021-07-02 15:38 | XRAY Report ---
PROCEDURE: Shoulder 3 View LT INDICATIONS: L SHOULDER PX TECHNIQUE: 4 views of the shoulder were acquired. COMPARISON: X-ray of the left shoulder, 3 views, 06/19/2020. FINDINGS: Bones: No fractures or dislocations. No suspicious bony lesions. Severe glenohumeral joint degenera tion and moderate acromioclavicular joint degeneration, worsened since the last exam on 06/19/2020. V isualized ribs appear intact. Soft tissues: There is a calcific density over the humeral head, suspicious for calcific tendinitis o f the rotator cuff tendons. IMPRESSION: 1. Worsening of severe degenerative joint disease. 2. Suspect rotator cuff calcific tendinitis. Reviewed by: Rachel Paula MD on 07/02/2021 3:36 PM PST Approved by: Rachel Paula MD on 07/02/2021 3:36 PM PST Station ID: [id number]
== END 2021-07-02 23:59 | disposition home or self-care (01) ==
LOC: DI.N 10:15
PROVIDERS: ATTEND Physician Assistant
DX: M19.012 Primary osteoarthritis, left shoulder (principal)

== ENCOUNTER 2021-07-24 12:16 | Outpatient (CLI) | payer MEDICARE, OTHER ==
[2021-07-24] MEDS ORDERED: lidocaine 1% 20 ML MDV ONE (12:35)
[2021-07-24] MEDS ORDERED: ROPIVACAINE 0.5% PF 20 ML AMPULE ONE ×2 (12:35→13:45)
[2021-07-24] MEDS ORDERED: TRIAMCINOLONE 40 MG/ML VIAL ONE (12:36)
[2021-07-24] MEDS ORDERED: IOTHALAMATE MEGLUMINE 50 ML VIAL ONE (12:36)
[2021-07-24] MEDS ORDERED: IOTHALAMATE MEGLUMINE 50 ML VIAL IVP ONE (13:38)
[2021-07-24] MEDS ORDERED: ROPIVACAINE 0.5% PF 20 ML AMPULE SUBQ STA (13:38)
[2021-07-24] MEDS ORDERED: lidocaine 1% 20 ML MDV SUBQ ONE (13:39)
--- NOTE | 2021-07-24 15:17 | XRAY Report ---
PROCEDURE: Inj/Aspiration Major Joint INDICATIONS: DJD LEFT SHOULDER CONTRAST: CONTRAST: conray FLUORO TIME: FLUORO TIME: 0.3 min and NUMBER IMAGES: 1 TECHNIQUE: The indications, alternatives, benefits, risks, and complications of the procedure were explained to the patient. Written informed consent was obtained and placed in the chart. The patient was placed in an appropriate position on the fluoroscopy table, and a site was chosen for percutaneous access un spencer fluoroscopic guidance. Local anesthetic was administered using a 1% lidocaine solution. A hypod ermic or spinal needle was then used to access the symptomatic joint. Intra-articular location of th e needle tip was confirmed by injecting a small amount of contrast, followed by steroid administratio n. The needle was then withdrawn, and a bandage applied to the puncture site. FINDINGS: Joint injected: Left glenohumeral Medications injected: 5 mL of 40 mg/mL Kenalog and 0.5% Ropivacaine mixture. Complications: None. IMPRESSION: Successful fluoroscopically guided administration of steroid and anaesthetic solution into the left g lenohumeral joint. Reviewed by: Letty Klein MD on 07/24/2021 3:16 PM PST Approved by: Letty Klein MD on 07/24/2021 3:16 PM PST Station ID: [id number]
== END 2021-07-24 12:17 | disposition home or self-care (01) ==
LOC: DI 12:16
PROVIDERS: ATTEND Physician Assistant
DX: M19.012 Primary osteoarthritis, left shoulder (principal)
CPT/HCPCS: 20610; 77002; Q9961

== ENCOUNTER 2021-09-10 09:15 | Outpatient (CLI) | payer MEDICARE, OTHER ==
--- NOTE | 2021-09-10 12:50 | XRAY Report ---
PROCEDURE: Hand 3 View RT INDICATIONS: RIGHT HAND PAIN TECHNIQUE: 3 views of the hand(s) acquired. COMPARISON: May 11, 2021 FINDINGS: BONES: Diffuse osteopenia. Periarticular lucencies about the second MCP. No acute, displaced fracture or dislocation. The carpal bones are normally aligned. Persistent interphalangeal and metacarpophalangeal joint space narrowing with periarticular osteophyt osis. Redemonstrated sclerosis of the triscaphe articulation. SOFT TISSUES: No focal abnormality. IMPRESSION: 1.No significant interval change. Reviewed by: Irvin Tan MD on 09/10/2021 12:48 PM PST Approved by: Irvin Tan MD on 09/10/2021 12:48 PM PST Station ID: [id number]
== END 2021-09-10 09:16 | disposition home or self-care (01) ==
LOC: DI.WOS 09:15
PROVIDERS: ATTEND Physician Assistant
DX: S64.31XA Injury of digital nerve of right thumb, initial encounter (principal)

== ENCOUNTER 2021-11-05 13:13 | Outpatient (CLI) | payer MEDICARE, OTHER ==
[2021-11-05] MEDS ORDERED: LIDOCAINE-MPF 1% 10 ML AMP ONE (13:37)
[2021-11-05] MEDS ORDERED: IOTHALAMATE MEGLUMINE 50 ML VIAL ONE (13:37)
[2021-11-05] MEDS ORDERED: ROPIVACAINE 0.5% PF 30 ML VIAL ONE (13:39)
[2021-11-05] MEDS ORDERED: TRIAMCINOLONE 40 MG/ML VIAL ONE (13:39)
[2021-11-05] MEDS ORDERED: LIDOCAINE-MPF 1% 10 ML AMP SUBQ ONE (14:17)
[2021-11-05] MEDS ORDERED: IOTHALAMATE MEGLUMINE 50 ML VIAL IVP ONE (14:19)
[2021-11-05] MEDS ORDERED: TRIAMCINOLONE 40 MG/ML VIAL IM ONE (14:19)
[2021-11-05] MEDS ORDERED: ROPIVACAINE 0.5% PF 30 ML VIAL IU ONE (14:19)
--- NOTE | 2021-11-05 14:43 | XRAY Report ---
PROCEDURE: Inj/Aspiration Major Joint INDICATIONS: DJD LEFT SHOULDER CONTRAST: CONTRAST: CONRAY FLUORO DOSAGE: 53.17 uGy/m^2 FLUORO TIME: FLUORO TIME: 0.2 min and NUMBER IMAGES: 2 TECHNIQUE: The indications, alternatives, benefits, risks, and complications of the procedure were explained to the patient. Written informed consent was obtained and placed in the chart. The patient was placed in an appropriate position on the fluoroscopy table, and a site was chosen for percutaneous access un spencer fluoroscopic guidance. Local anesthetic was administered using a 1% lidocaine solution. A hypod ermic or spinal needle was then used to access the symptomatic joint. Intra-articular location of th e needle tip was confirmed by injecting a small amount of contrast, followed by steroid administratio n. The needle was then withdrawn, and a bandage applied to the puncture site. FINDINGS: Joint injected: Left glenohumeral Medications injected: 1.0 mL of 40 mg/mL Kenalog and 0.5% Ropivacaine mixture. Complications: None. IMPRESSION: Successful fluoroscopically guided administration of steroid and anaesthetic solution into the left g lenohumeral joint. Reviewed by: Yakov Newman MD on 11/05/2021 2:42 PM PDT Approved by: Yakov Newman MD on 11/05/2021 2:42 PM PDT Station ID: [id number]
== END 2021-11-05 13:14 | disposition home or self-care (01) ==
LOC: DI 13:13
PROVIDERS: ATTEND Physician Assistant
DX: M19.012 Primary osteoarthritis, left shoulder (principal)
CPT/HCPCS: 20610; 77002; Q9961

== ENCOUNTER 2022-01-01 09:22 | Emergency (ER) | payer MEDICARE, OTHER ==
--- NOTE | 2022-01-01 09:51 | ED Physician Documentation ---
PD HPI ABD PAIN - Stated complaint Stated Complaint: ABD PX - Chief complaint Chief Complaint: Abd Pain - History obtained from History obtained from: Patient - Additional information Additional information: 86-year-old woman has been having ongoing diarrhea for the last 2 years daily. She has had trouble following up for this but does have an appointment with 's office for consideration for colonoscopy, her last was 10 years ago. 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 For the last 4 days especially she has had diffuse severe abdominal pain that is worse with walking. Although she declines medication for it. She still been eating and denies nausea. She states her stomach just feels off. No blood in the diarrhea. 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 : None, Frequency, Other HEENT: Chronic vision loss, Chronic hearing loss Psych: Anxiety, Panic attacks Musculoskeletal: Osteoarthritis, Chronic back pain Derm: None - Past Surgical History Past Surgical History: Yes General: Appendectomy, 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 10/01/18 Metoclopramide [Reglan] 10 mg PO Q6H PRN #20 tablet 01/24/21 Amox/Clav 875/125 [Augmentin] 1 each PO TID #21 tablet 01/01/22 Dicyclomine [Bentyl] 1 - 2 tab PO QID PRN #20 cap 01/01/22 Loperamide [Imodium] 2 mg PO QID PRN #10 cap 01/01/22 - Allergies Allergies/Adverse Reactions: Allergies Allergy/AdvReac Type Severity Reaction Status Date / Time ergot alkaloids Allergy Rash Verified 01/01/22 09:31 - Social History Does the pt smoke?: No Smoking Status: Never smoker Does the pt drink ETOH?: No Does the pt have substance abuse?: No - Immunizations Immunizations are current?: Yes - POLST Patient has POLST: No PD ED PE NORMAL - Vitals Vital signs reviewed: Yes - General General: Alert and oriented X 3, No acute distress - HEENT HEENT: PERRL, EOMI - Neck Neck: Supple, no meningeal sign, No bony TTP - Cardiac Cardiac: RRR, No murmur - Respiratory Respiratory: No respiratory distress, Clear bilaterally - Abdomen Abdomen: Other (Mild diffuse tenderness especially on the right side upper and lower with normal bowel sounds and no surgical signs.) - Back Back: No CVA TTP, No spinal TTP - Derm Derm: Normal color, Warm and dry - Extremities Extremities: No edema, No calf tenderness / cord - Neuro Neuro: Alert and oriented X 3, Normal speech Results - Vitals Vitals: Vital Signs - 24 hr 01/01/22 01/01/22 09:28 11:31 Temperature 36.6 C Heart Rate 83 62 Respiratory 16 15 Rate Blood Pressure 156/69 H 168/85 H O2 Saturation 98 99 Oxygen O2 Source Room air - Labs Labs: Laboratory Tests 01/01/22 01/01/22 01/01/22 10:00 10:00 10:52 WBC 5.1 RBC 3.22 L Hgb 9.1 L Hct 28.9 L MCV 89.8 MCH 28.3 MCHC 31.5 L RDW 13.7 Plt Count 281 MPV 10.2 Neut # (Auto) 3.0 Lymph # (Auto) 1.6 [place] # (Auto) 0.5 Eos # (Auto) 0.1 Baso # (Auto) 0.0 Absolute Nucleated RBC 0.00 Nucleated RBC % 0.0 Sodium 138 Potassium 3.9 Chloride 103 Carbon Dioxide 25 Anion Gap 10.0 BUN 19 Creatinine 0.8 Estimated GFR (MDRD) 68 L Glucose 103 H Calcium 10.1 Total Bilirubin 0.7 AST 21 ALT 15 Alkaline Phosphatase 56 Total Protein 7.4 Albumin 3.8 Globulin 3.6 Albumin/Globulin Ratio 1.1 Lipase 28 Urine Color YELLOW Urine Clarity CLEAR Urine pH 7.0 Ur Specific [place] 1.010 Urine Protein NEGATIVE Urine Glucose (UA) NEGATIVE Urine Ketones NEGATIVE Urine Occult Blood NEGATIVE Urine Nitrite NEGATIVE Urine Bilirubin NEGATIVE Urine Urobilinogen 0.2 (NORMAL) Ur Leukocyte Esterase NEGATIVE Ur Microscopic Review NOT INDICATED Urine Culture Comments NOT INDICATED PD MEDICAL DECISION MAKING - ED course ED course: 86-year-old woman presents with now chronic diarrhea but increasing pain over the last few days, she has diffuse pain worse on the right. Work-up demonstrates normal white count, hemoglobin of 9.1, and basically normal chemistries and urine. The CT was done without contrast given the ongoing severe contrast shortage, I suspect she may have mild diverticulitis but we are treating for this but she also knows she needs to follow-up for the colonoscopy which she was already planning. Departure - Departure Disposition: 01 Home, Self Care Clinical Impression: Diverticula of colon, Anemia Condition: Good Record reviewed to determine appropriate education?: Yes Instructions: ED Diverticulitis Prescriptions: Amox/Clav 875/125 [Augmentin] 1 each PO TID #21 tablet Dicyclomine [Bentyl] 1 - 2 tab PO QID PRN #20 cap PRN Reason: Abdominal Pain Loperamide [Imodium] 2 mg PO QID PRN #10 cap PRN Reason: Diarrhea Comments: You are seen today for ongoing abdominal pain worse for the last few days associated with now chronic diarrhea. Lab work demonstrated anemia worse than usual for you with a hemoglobin of 9. CT without contrast showing diverticula, I presume mild diverticulitis given exam. I sent your prescription electronically to the [facility] pharmacy here in [place]. As discussed you do need to follow-up with Dr. Smith soon as possible for consideration of colonoscopy. Return for new or worsening symptoms. Discharge Date/Time: 01/01/22 11:48
[2022-01-01 10:11] LABS: BASOPHILS % (AUTO) 0.2 %; EOSINOPHILS # (AUTO) 0.1 10^3/uL (0.0-0.7); EOSINOPHILS % (AUTO) 1.4 %; HCT - HEMATOCRIT 28.9 % (37.0-47.0); HGB - HEMOGLOBIN 9.1 g/dL (12.0-16.0); LYMPHOCYTES # (AUTO) 1.6 10^3/uL (1.5-3.5); LYMPHOCYTES % (AUTO) 31.4 %; MEAN CORPUSCULAR HEMOGLOBIN 28.3 pg (27.0-31.0); MEAN CORPUSCULAR HGB CONC 31.5 g/dL (32.0-36.0); MEAN CORPUSCULAR VOLUME 89.8 fL (81.0-99.0); MEAN PLATELET VOLUME 10.2 fL (7.9-10.8); MONOCYTES # (AUTO) 0.5 10^3/uL (0.0-1.0); NEUTROPHILS % (AUTO) 57.8 %; PLT - PLATELET COUNT 281 10^3/uL (130-450); RED BLOOD COUNT 3.22 10^6/uL (4.20-5.40); RED CELL DISTRIBUTION WIDTH 13.7 % (12.0-15.0); WHITE BLOOD COUNT 5.1 x10^3/uL (4.8-10.8)
[2022-01-01 10:19] LABS: ALBUMIN 3.8 g/dL (3.2-5.5); ALBUMIN/GLOBULIN RATIO 1.1 (1.0-2.2); BILIRUBIN,TOTAL 0.7 mg/dL (0.2-1.0); CALCIUM 10.1 mg/dL (8.5-10.3); CREATININE 0.8 mg/dL (0.4-1.0); POTASSIUM 3.9 mmol/L (3.5-5.0); TOTAL PROTEIN 7.4 g/dL (6.7-8.2)
--- NOTE | 2022-01-01 10:40 | CT Report ---
PROCEDURE: Abdomen/Pelvis WO INDICATIONS: abd pain TECHNIQUE: Noncontrast 5 mm thick sections acquired from the diaphragms to the symphysis. 5 mm coronal and sagi ttal reformats were then performed. For radiation dose reduction, the following was used: automated exposure control, adjustment of mA and/or kV according to patient size. COMPARISON: CT abdomen pelvis 05/04/2015. FINDINGS: Image quality: Excellent. ABDOMEN: Lung bases: Lung bases are clear. Heart size is normal. Solid organs: Liver and spleen are normal in size. Gallbladder is unremarkable Pancreas is normal in contours. No adrenal nodules. Kidneys demonstrate minimal atrophy, without hydronephrosis or nep hrolithiasis. Peritoneum and bowel: Unenhanced bowel loops demonstrate normal wall thickness and caliber. No free fluid or air. Colonic diverticula are present without inflammatory change. Nodes and vessels: No retroperitoneal or mesenteric adenopathy by size criteria. Aorta and inferior vena cava are normal in caliber. Miscellaneous: No ventral hernias. PELVIS: Genitourinary: Bladder wall thickness is normal. Miscellaneous: No inguinal hernias or adenopathy. Bones: No suspicious bony lesions. No vertebral body compression fractures. IMPRESSION: Colonic diverticulosis. No obstruction. Reviewed by: Jackie Pichardo MD on 01/01/2022 10:38 AM PDT Approved by: Jackie Pichardo MD on 01/01/2022 10:38 AM PDT Station ID: [id number]
[2022-01-01 11:05] LABS: BILIRUBIN,URINE NEGATIVE (NEGATIVE); GLUCOSE, URINE (UA) NEGATIVE (NEGATIVE); KETONES,URINE (UA) NEGATIVE (NEGATIVE); LEUKOCYTE ESTERASE, URINE NEGATIVE (NEGATIVE); NITRITE,URINE NEGATIVE (NEGATIVE); OCCULT BLOOD,URINE NEGATIVE (NEGATIVE); PROTEIN,URINE NEGATIVE (NEGATIVE); UROBILINOGEN,URINE 0.2 (NORMAL) E.U./dL (NORMAL)
[2022-01-01 11:06] LABS: CLARITY,URINE CLEAR (CLEAR)
[2022-01-01] MEDS ORDERED: AMOX/CLAV 875 MG/125 MG TABLET PO STA (11:16)
[2022-01-01] MEDS ORDERED: LOPERAMIDE 2 MG CAPSULE PO STA (11:16)
[2022-01-01] MEDS ORDERED: DICYCLOMINE 10 MG CAPSULE PO STA (11:16)
[2022-01-01 11:44] VITALS: BP 168/85
== END 2022-01-01 11:48 | disposition home or self-care (01) ==
LOC: ED 09:22
DX: K57.30 Diverticulosis of large intestine without perforation or abscess without bleeding (principal); D64.9 Anemia, unspecified; I10 Essential (primary) hypertension
CPT/HCPCS: 36415; 74176; 80053; 81003; 83690; 85025; 99284; A9270; 81001; 87086

== ENCOUNTER 2022-03-20 09:20 | Outpatient (CLI) | payer MEDICARE, OTHER | END 2022-03-20 09:21 | disposition critical access hospital (66) | LOC: EMS 09:20 | DX: R10.84 Generalized abdominal pain (principal); R10.817 Generalized abdominal tenderness | CPT/HCPCS: A0425; A0429 ==

== ENCOUNTER 2022-03-20 09:33 | Observation (INO) | payer MEDICARE, OTHER ==
[2022-03-20 10:16] LABS: BASOPHILS % (AUTO) 0.2 %; EOSINOPHILS # (AUTO) 0.1 10^3/uL (0.0-0.7); EOSINOPHILS % (AUTO) 0.6 %; HCT - HEMATOCRIT 31.8 % (37.0-47.0); LYMPHOCYTES # (AUTO) 0.9 10^3/uL (1.5-3.5); LYMPHOCYTES % (AUTO) 7.6 %; MEAN CORPUSCULAR HEMOGLOBIN 28.1 pg (27.0-31.0); MEAN CORPUSCULAR HGB CONC 31.4 g/dL (32.0-36.0); MEAN CORPUSCULAR VOLUME 89.3 fL (81.0-99.0); MEAN PLATELET VOLUME 9.9 fL (7.9-10.8); MONOCYTES # (AUTO) 0.4 10^3/uL (0.0-1.0); MONOCYTES % (AUTO) 3.2 %; NEUTROPHILS # (AUTO) 10.8 10^3/uL (1.5-6.6); NEUTROPHILS % (AUTO) 87.7 %; PLT - PLATELET COUNT 285 10^3/uL (130-450); RED BLOOD COUNT 3.56 10^6/uL (4.20-5.40); RED CELL DISTRIBUTION WIDTH 16.8 % (12.0-15.0); WHITE BLOOD COUNT 12.3 x10^3/uL (4.8-10.8)
[2022-03-20 10:24] LABS: ALBUMIN 3.7 g/dL (3.2-5.5); ALBUMIN/GLOBULIN RATIO 1.2 (1.0-2.2); BILIRUBIN,TOTAL 0.5 mg/dL (0.2-1.0); CALCIUM 10.2 mg/dL (8.5-10.3); CREATININE 0.7 mg/dL (0.4-1.0); POTASSIUM 3.8 mmol/L (3.5-5.0); TOTAL PROTEIN 6.9 g/dL (6.7-8.2)
--- NOTE | 2022-03-20 10:26 | ED Physician Documentation ---
PD HPI ABD PAIN - Stated complaint Stated Complaint: POST OP PAIN - Chief complaint Chief Complaint: Abd Pain - History obtained from History obtained from: Patient, EMS - History of Present Illness Timing - onset: Today Timing - duration: Hours Timing - details: Abrupt onset, Still present Pain level max: 10 Pain level now: 10 Quality: Cramping, Sharp, Pain Location: RLQ Radiation: Right flank Improved by: Laying still Worsened by: Moving, Position, Palpation Associated symptoms: No: Fever, Nausea, Vomiting, Hematemesis, Diarrhea, Constipation, Melena, Hematochezia, Chest pain, Dizzy, Loss of appetite Similar symptoms before: Work up / diagnostics (worked up previously for GB disease) Recently seen: Surgery - Additional information Additional information: 86-year-old female who has recently been operated by Dr. See for removal of a colon tumor done 2 weeks ago presents to the Emergency Department this morning with acute abdominal pain. She states that she has been doing well has not had to use any opiates had her postop visit on Thursday has been eating well has had no vomiting diarrhea or constipation. She denies any blood and she states that she had a big meal yesterday evening and this morning when she awoke she felt well got went to get out of bed and had sudden severe pain in the right lower quadrant. The pain was a 10 out of 10 she has pain with movement and palpation. She did take some Tylenol has some improvement in the pain now but continues to have pain with palpation. Review of Systems Constitutional: denies: Fever, Chills, Myalgias, Fatigue, Sweats Eyes: denies: Decreased vision Ears: denies: Ear pain Nose: denies: Congestion Throat: denies: Sore throat Cardiac: denies: Chest pain / pressure, Palpitations, Pedal edema, Calf pain Respiratory: denies: Dyspnea, Cough, Wheezing GI: reports: Abdominal Pain. 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 : None, Frequency, Other HEENT: Chronic vision loss, Chronic hearing loss Psych: Anxiety, Panic attacks Musculoskeletal: Osteoarthritis, Chronic back pain Derm: None Other Past Medical History: colon cancer - Past Surgical History Past Surgical History: Yes General: Appendectomy, Bowel surgery, Colonoscopy, Other /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: Hysterectomy HEENT: Cataracts - Present Medications Home Medications: Ambulatory Orders Medication Instructions Recorded Confirmed Sertraline [Zoloft] 25 mg PO DAILY 08/03/14 03/20/22 Acetaminophen [Tylenol] 500 mg PO DAILY PRN 03/06/22 03/20/22 Ibuprofen [Motrin] 400 mg PO DAILY PRN 03/06/22 03/20/22 HYDROcod/ACETAM 5/325 [[place] 5/325] 1 - 2 tab PO Q6HR PRN #10 tablet 03/10/22 03/20/22 Olmesartan Medoxomil [Benicar] 40 mg PO DAILY 03/20/22 03/20/22 - Allergies Allergies/Adverse Reactions: Allergies Allergy/AdvReac Type Severity Reaction Status Date / Time ergot alkaloids Allergy Rash Verified 02/26/22 07:52 - Social History Does the pt smoke?: No Smoking Status: Never smoker Does the pt drink ETOH?: No Does the pt have substance abuse?: No - Immunizations Immunizations are current?: Yes - POLST Patient has POLST: No PD ED PE NORMAL - Vitals Vital signs reviewed: Yes (hypertensive ) - General General: Alert and oriented X 3, No acute distress, Well developed/nourished, Other (86 y/o female with pale lips appears comfortable ) - HEENT HEENT: Atraumatic, PERRL, EOMI - Neck Neck: Supple, no meningeal sign, No bony TTP - Cardiac Cardiac: RRR, No murmur - Respiratory Respiratory: No respiratory distress, Clear bilaterally - Abdomen Abdomen: Normal bowel sounds, Soft, Other (RLQ tenderness to palpation with mild guarding. No RUQ or LLQ tenderness. Mild distention is present. The surgical site appears without inflamation. ) - Back Back: No CVA TTP, No spinal TTP - Derm Derm: Normal color, Warm and dry, No rash - Extremities Extremities: No deformity, No edema - Neuro Neuro: Alert and oriented X 3, felt carbonizer 2-12 intact, No motor deficit, No sensory deficit, Normal speech Eye Opening: Spontaneous Motor: Obeys Commands - Psych Psych: Normal mood, Normal affect Results - Vitals Vitals: Vital Signs - 24 hr 03/20/22 03/20/22 03/20/22 09:39 11:41 13:27 Temperature 36.7 C Heart Rate 82 81 75 Respiratory 14 18 16 Rate Blood Pressure 158/96 H 142/68 H 126/50 L O2 Saturation 100 97 96 03/20/22 14:51 Temperature 36.7 C Heart Rate 75 Respiratory 16 Rate Blood Pressure 126/50 L O2 Saturation 96 Oxygen O2 Source Room air - Labs Labs: Laboratory Tests 03/20/22 03/20/22 03/20/22 10:06 10:06 10:06 WBC 12.3 H RBC 3.56 L Hgb 10.0 L Hct 31.8 L MCV 89.3 MCH 28.1 MCHC 31.4 L RDW 16.8 H Plt Count 285 MPV 9.9 Neut # (Auto) 10.8 H Lymph # (Auto) 0.9 L [place] # (Auto) 0.4 Eos # (Auto) 0.1 Baso # (Auto) 0.0 Absolute Nucleated RBC 0.00 Nucleated RBC % 0.0 Sodium 140 Potassium 3.8 Chloride 107 Carbon Dioxide 24 Anion Gap 9.0 BUN 25 H Creatinine 0.7 Estimated GFR (MDRD) 80 L Glucose 116 H Lactic Acid 0.8 Calcium 10.2 Total Bilirubin 0.5 AST 18 ALT 13 Alkaline Phosphatase 51 Total Protein 6.9 Albumin 3.7 Globulin 3.2 Albumin/Globulin Ratio 1.2 Lipase 40 Urine Color Urine Clarity Urine pH Ur Specific [place] Urine Protein Urine Glucose (UA) Urine Ketones Urine Occult Blood Urine Nitrite Urine Bilirubin Urine Urobilinogen Ur Leukocyte Esterase Ur Microscopic Review Urine Culture Comments 03/20/22 10:56 WBC RBC Hgb Hct MCV MCH MCHC RDW Plt Count MPV Neut # (Auto) Lymph # (Auto) [place] # (Auto) Eos # (Auto) Baso # (Auto) Absolute Nucleated RBC Nucleated RBC % Sodium Potassium Chloride Carbon Dioxide Anion Gap BUN Creatinine Estimated GFR (MDRD) Glucose Lactic Acid Calcium Total Bilirubin AST ALT Alkaline Phosphatase Total Protein Albumin Globulin Albumin/Globulin Ratio Lipase Urine Color YELLOW Urine Clarity CLEAR Urine pH 5.0 Ur Specific [place] 1.025 Urine Protein NEGATIVE Urine Glucose (UA) NEGATIVE Urine Ketones NEGATIVE Urine Occult Blood TRACE-INTA Urine Nitrite NEGATIVE Urine Bilirubin NEGATIVE Urine Urobilinogen 0.2 (NORMAL) Ur Leukocyte Esterase NEGATIVE Ur Microscopic Review NOT INDICATED Urine Culture Comments NOT INDICATED - Rads (name of study) CT ab/pel without Radiology: Prelim report reviewed (Impression: 1. Right hemicolectomy and ileal cecal anastomosis appears intact. Mild postprocedural edema and free fluid in the pelvis is present. No noncontrast CT evidence of organized abscess. Consider short-term interval follow-up CT with contrast if symptoms persist. Probable cholelithiasis), Final report received (. Probable cholelithiasis without CT evidence of acute cholecystitis.), EMP read indepedently, See rad report Procedures - Bedside sono Bedside sono by EMP: With use of bedside ultrasound the right upper quadrant is imaged the gallbladder is nondistended it is sonographically nontender the wall is not thickened there is a question of a shadowing stone not well seen PD MEDICAL DECISION MAKING - ED course Complexity details: reviewed old records, reviewed results, re-evaluated patient, considered differential, d/w patient, d/w PMD ED course: 86-year-old female 2 weeks out from a right hemicolectomy with primary anastomosis has developed acute pain this morning. She appeared to be recovering uneventfully and appeared well even yesterday. On examination she has some mild right lower quadrant tenderness she has unremarkable laboratory studies mildly elevated white blood cell count 12.4. Imaging is without evidence of obvious abnormality and consistent with the postoperative phase. There is some stool in the colon throughout and an enema is administered as well as some Toradol. Early in the case her surgeon Dr. Flores was consulted. He came to the emergency department and evaluated the patient, recommended the treatment with Toradol and the enema and will reevaluate the patient following that. The patient did have a good results with the enema, had some reduction in her pain but continued to have specific localized pain to palpation and she does not want to go home. I do not believe she would be capable of caring for herself at home in her current state. Departure - Departure Disposition: ED Place in Observation Clinical Impression: Post-operative pain, Dehydration Constipation Qualifiers: Constipation type: unspecified constipation type Qualified Code(s): K59.00 - Constipation, unspecified Condition: Stable
--- NOTE | 2022-03-20 11:05 | CT Report ---
PROCEDURE: CT abdomen pelvis without contrast INDICATIONS: 86-year-old female with right lower quadrant pain and history of colon cancer with mima ctomy x2 weeks TECHNIQUE: Noncontrast 5 mm thick sections acquired from the diaphragms to the symphysis. 5 mm dennise nal and sagittal reformats were then performed. For radiation dose reduction, the following was used : automated exposure control, adjustment of mA and/or kV according to patient size. COMPARISON: 02/26/2022 FINDINGS: Lower thorax: The lung bases are clear. Heart size normal. No hiatal hernia. Liver: Normal in size and attenuation. No contour deformity present. Biliary system: Probable small calcified stones noted layering dependently in the gallbladder lumen. No CT evidence of acute cholecystitis. Pancreas: Unremarkable without mass or inflammation evident. Spleen: Normal in size and density. Adrenals: Normal morphology and density. Reproductive system: Unremarkable as visualized. Urinary system: Normal renal size and attenuation. No renal calculi, hydronephrosis, or solid mass p resent. Urinary bladder unremarkable. Gastrointestinal system: Right hemicolectomy and ileocolic anastomosis appears intact. Mild postproce dural pericolonic edema is within expected limits. Mild to moderate postoperative free fluid in the p myrtle as well. No noncontrast CT evidence of organized abscess. Multiple diverticula arise from the sigmoid colon without evidence of reticulitis. Appendix: No findings to suggest acute appendicitis. Peritoneal spaces: No mesenteric or retroperitoneal adenopathy. No free air. No free fluid. Vasculature: The IVC, aorta and iliac vasculature are unremarkable. Musculoskeletal: Normal bone mineralization. No acute fractures. Abdominal wall intact without piotr dence of ventral or inguinal hernias. Degenerative disc disease and arthropathy noted in the lower gilda mbar spine IMPRESSION: 1. Right hemicolectomy and ileocolic anastomosis appears intact. Mild postprocedural edema and free f luid in the pelvis is present. No noncontrast CT evidence of organized abscess. Consider short-term i nterval follow-up CT with contrast if symptoms persist 2. Probable cholelithiasis without CT evidence of acute cholecystitis. Reviewed by: Nirmal Butler MD on 03/20/2022 10:04 AM ALEJANDRA Approved by: Nirmal Butler MD on 03/20/2022 10:04 AM ALEJANDRA Station ID: [id number]
[2022-03-20 11:16] LABS: BILIRUBIN,URINE NEGATIVE (NEGATIVE); GLUCOSE, URINE (UA) NEGATIVE (NEGATIVE); KETONES,URINE (UA) NEGATIVE (NEGATIVE); LEUKOCYTE ESTERASE, URINE NEGATIVE (NEGATIVE); NITRITE,URINE NEGATIVE (NEGATIVE); OCCULT BLOOD,URINE TRACE-INTA (NEGATIVE); PROTEIN,URINE NEGATIVE (NEGATIVE); UROBILINOGEN,URINE 0.2 (NORMAL) E.U./dL (NORMAL)
[2022-03-20 11:17] LABS: CLARITY,URINE CLEAR (CLEAR)
[2022-03-20] MEDS ORDERED: KETOROLAC 30 MG/ML VIAL IVP STA (12:11)
[2022-03-20] MEDS ORDERED: SODIUM CHLORIDE FLUSH 0.9% 10 ML SYRINGE IVP PRN (14:34)
[2022-03-20] MEDS ORDERED: KETOROLAC 15 MG/ML VIAL IVP PRN (14:34)
--- NOTE | 2022-03-20 14:45 | SURGERY HX AND PHYSICAL(T) ---
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 She was doing exceedingly well at home on no pain medications. She is having 3 bowel movements a day as recently as yesterday. She was tolerating a general diet. Today she woke up with excruciating (10 out of 10) pain in the right lower jcarlos drant that was not associated with any other symptomatology. 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 Urinary: None, Frequency, Other Musculoskeletal: Osteoarthritis, Chronic back pain Blood Disorders: None Psychiatric: Anxiety, Panic attacks PMH Other: colon cancer General: Appendectomy, Bowel surgery, Colonoscopy, Other (Single incision laparoscopic right hemicolectomy) Eyes Ears Nose Throat (EENT): Cataracts Smoking Status: Never smoker Does the pt drink ETOH?: No Does the pt have substance abuse?: No - Family Hx Family Hx: Unremarkable - Home Meds and Allergies Home Medications: Sertraline [Zoloft] 25 mg PO DAILY 08/03/14 Acetaminophen [Tylenol] 500 mg PO DAILY PRN 03/06/22 Ibuprofen [Motrin] 400 mg PO DAILY PRN 03/06/22 Olmesartan Medoxomil [Benicar] 40 mg PO DAILY 03/20/22 Allergies/Adverse Reactions: Allergies Allergy/AdvReac Type Severity Reaction Status Date / Time ergot alkaloids Allergy Rash Verified 02/26/22 07:52 - Review of Systems Constitutional: No: Fatigue, Fever, Chills, Malaise, Weakness, Poor appetite HEENT: No: Headaches Skin: No: Cyanosis, Jaundice Cardiac: No: CHF Respiratory: No: Shortness of breath Gastrointestinal: Abdominal pain, Flatus. No: Nausea, Vomiting, Difficulty swallowing Gentinourinary: No: Dysuria Neurological: No: Dizziness Hematologic: No: Bleeding or bruising Psychiatric: No: Depression, Anxiety Endocrinologic: No: Sweating Allergies: No: Asthma - Vital Signs Heart Rate: 75 Blood Pressure: 126/50 Temperature: 36.7 C Respiratory Rate: 16 O2 Saturation: 96 Weight (kg): 63.503 kg Height: 1.52 m - Physical Exam General Appearance: positive: No acute distress Eyes Bilatera: positive: No lid inflammation, Conjunctivae nml, No scleral icterus ENT: positive: No signs of dehydration Neck: positive: Nml inspection, No JVD, Trachea midline Respiratory: positive: Chest non-tender, No respiratory distress, Breath sounds nml Cardiovascular: positive: Regular rate & rhythm Abdomen: positive: Nml bowel sounds, Tenderness (Abdominal pain) Skin: positive: Color nml Extremities: positive: Non-tender, Nml appearance Neurologic/Psychiatric: positive: Oriented x3, Motor nml, Sensation nml, Mood/affect nml - Patient Review Patient Review: Problems were reviewed with the patient during this visit. Medications were reviewed with the patient during this visit. Allergies were reviewed this patient during this visit. Pertinent Tests Reviewed: All pertitent test for this patient were reviewed. - Assessment & Plan Assessment and Plan: The patient clearly does not feel as well as she felt yesterday and the findings of peritoneal type pain have me mildly concerned. There is no significantly elevated white blood cell count. There is no evidence of infection or abscess on CT scan or via her labs. Her history of 3 normal bowel movements speaks against any abscess. There is no redness about the wound. Out of an abundance of caution I would like to bring her into the hospital as an observation patient and perform serial examinations as well as repeat her labs in the morning. Additionally she has had a good response to an enema with the passage of a relatively large amount of solid stool. She is also being given Toradol with good response. She still does not feel completely normal as she felt yesterday with these interventions. I have written for a regular diet as well as IV Toradol. As mentioned I will repeat her labs in the morning and repeat her examination. If she does not improve a repeat CT scan may be indicated but at this point serial examination and follow-up is the plan. I have discussed this at length with the patient who is in agreement with this. Due to previous conversations she wishes to be a DNR. This is reflected in the orders. CPT 33391
--- NOTE | 2022-03-20 15:36 | PHARMACY PROGRESS NOTE ---
- Best Possible Medication History Admit Date and Time: 03/20/22 1434 Processed by: Pharmacy Medication History completed: Yes Secondary Source(s): Pharmacy records, Insurance records, Previous admit records As the person ultimately responsible for medication therapy, providers are able to order a medication from an existing home medication list in [facility] via the "Reconcile Routine" prior to Confirmation of that medication by care support representative. Such practice is discouraged except when the physician, in their clinical judgment, deems that a medical need exists for a medication without regard to previous use.
[2022-03-20] MEDS: SODIUM CHLORIDE FLUSH 0.9% 10 ML SYRINGE IVP SCH (15:48)
[2022-03-20 15:50] LABS: B. PARAPERTUSSIS- RESP PCR PAN NOT DETECTED; B. PERTUSSIS- RESP PCR PANEL NOT DETECTED; C. PNEUMONIAE- RESP PCR PANEL NOT DETECTED; CORONAVIRUS 229E-RESP PCR NOT DETECTED; CORONAVIRUS HKU1-RESP PCR NOT DETECTED; CORONAVIRUS NL63-RESP PCR NOT DETECTED; CORONAVIRUS OC43-RESP PCR NOT DETECTED; HUMAN METAPNEUMOVIRUS NOT DETECTED; INFLUENZA A- RESP PCR PANEL NOT DETECTED; INFLUENZA B - RESP PCR PANEL NOT DETECTED; M. PNEUMONIAE- RESP PCR PANEL NOT DETECTED; PARAINFLUENZA VIRUS 1 NOT DETECTED; PARAINFLUENZA VIRUS 2 NOT DETECTED; PARAINFLUENZA VIRUS 3 NOT DETECTED; PARAINFLUENZA VIRUS 4 NOT DETECTED; RHINOVIRUS/ENTEROVIRUS NOT DETECTED; RSV- RESP PCR PANEL NOT DETECTED; SARS-CoV-2 -RESP PCR PANEL NOT DETECTED
[2022-03-21] MEDS: SODIUM CHLORIDE FLUSH 0.9% 10 ML SYRINGE IVP SCH ×2 (00:01→11:35)
[2022-03-21] MEDS: IBUPROFEN 600 MG TABLET PO PRN ×2 (03:48→11:34)
[2022-03-21 04:39] LABS: BASOPHILS % (AUTO) 0.3 %; EOSINOPHILS # (AUTO) 0.1 10^3/uL (0.0-0.7); EOSINOPHILS % (AUTO) 0.9 %; HCT - HEMATOCRIT 27.3 % (37.0-47.0); HGB - HEMOGLOBIN 8.7 g/dL (12.0-16.0); LYMPHOCYTES # (AUTO) 1.2 10^3/uL (1.5-3.5); LYMPHOCYTES % (AUTO) 15.4 %; MEAN CORPUSCULAR HEMOGLOBIN 28.2 pg (27.0-31.0); MEAN CORPUSCULAR HGB CONC 31.9 g/dL (32.0-36.0); MEAN CORPUSCULAR VOLUME 88.3 fL (81.0-99.0); MONOCYTES # (AUTO) 0.5 10^3/uL (0.0-1.0); MONOCYTES % (AUTO) 6.6 %; NEUTROPHILS % (AUTO) 76.3 %; PLT - PLATELET COUNT 243 10^3/uL (130-450); RED BLOOD COUNT 3.09 10^6/uL (4.20-5.40); RED CELL DISTRIBUTION WIDTH 17.1 % (12.0-15.0); WHITE BLOOD COUNT 7.9 x10^3/uL (4.8-10.8)
[2022-03-21 04:51] LABS: ALBUMIN 3.1 g/dL (3.2-5.5); ALBUMIN/GLOBULIN RATIO 1.1 (1.0-2.2); BILIRUBIN,TOTAL 0.7 mg/dL (0.2-1.0); CALCIUM 9.3 mg/dL (8.5-10.3); CREATININE 0.7 mg/dL (0.4-1.0); POTASSIUM 3.6 mmol/L (3.5-5.0); TOTAL PROTEIN 5.9 g/dL (6.7-8.2)
--- NOTE | 2022-03-21 13:44 | DISCHARGE SUMMARY ---
"Discharge Summary Admit Date: 03/20/22 Discharge Date: 03/21/22 Discharging Provider: MD Nicolas Code Status: Do Not Attempt Resuscitation Condition at Discharge: Stable Discharge Disposition: Home Health Service - DIAGNOSES Admission Diagnoses: Abdominal pain Discharge Diagnoses with Status of Each Condition: Improved but not completely resolved. 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 I saw her in my office this Thursday looking very well and without complaint. She had the abrupt onset of 10 out of 10 right lower quadrant pain yesterday morning and presented to the ED. Her labs and radiographic studies were not worrisome but her exam showed peritoneal findings and this concerned me. As a result I brought the patient into the hospital under observation to follow her with labs and serial exams. Today the patient is improved but not completely better. Walking with walker, had BM today. - CONSULTS | PROCEDURES Consultations: None. Procedures: None. - HOSPITAL COURSE Hospital Course: Uncomplicated. - ALLERGIES Allergies/Adverse Reactions: Allergies Allergy/AdvReac Type Severity Reaction Status Date / Time ergot alkaloids Allergy Rash Verified 02/26/22 07:52 - MEDICATIONS Home Medications: Ambulatory Orders Medication Instructions Recorded Confirmed Sertraline [Zoloft] 25 mg PO DAILY 08/03/14 03/20/22 Acetaminophen [Tylenol] 500 mg PO DAILY PRN 03/06/22 03/20/22 Ibuprofen [Motrin] 400 mg PO DAILY PRN 03/06/22 03/20/22 HYDROcod/ACETAM 5/325 [[place] 5/325] 1 - 2 tab PO Q6HR PRN #10 tablet 03/10/22 03/20/22 Olmesartan Medoxomil [Benicar] 40 mg PO DAILY 03/20/22 03/20/22 - PHYSICAL EXAM AT DISCHARGE General Appearance: positive: No acute distress, Alert Eyes Bilateral: positive: No lid inflammation, Conjunctivae nml, No scleral icterus ENT: positive: No signs of dehydration Neck: positive: Trachea midline Respiratory: positive: Chest non-tender, No respiratory distress, Breath sounds nml Cardiovascular: positive: Regular rate & rhythm Abdomen: positive: Nml bowel sounds, Tenderness (In RLQ better and less than yesterday.) Skin: positive: Color nml, No rash, Warm, Dry Extremities: positive: Nml appearance, No pedal edema Neurologic/Psychiatric: positive: Oriented x3, CN's nml (2-12), Motor nml, Sensation nml, Mood/affect nml - LABS Result Diagrams: 03/21/22 04:27 03/21/22 04:27 - FOLLOW UP Follow Up: This Thursday in my office. - TIME SPENT Time Spent in Discharge (Minutes): 45"
--- NOTE | 2022-03-21 14:06 | Discharge Plan ---
Discharge Plan Problem Reviewed?: Yes Disposition: Home Health Service Condition: Stable Prescriptions: Ketorolac [Toradol] 10 mg PO Q6H #20 tablet Diet: Regular Activity Restrictions: No Restrictions Shower Restrictions: No Driving Restrictions: Yes Assistance Devices: Walker Weight Bearing: Full Weight Health Concerns: You presented to our ED with worsening abdominal pain which although not completely resolved has improved. Labs and radiologic studies have not confirmed a concerning finding. This may be a normal postoperative result that should resolve with time. Plan of Treatment: Follow up with me on Thursday - call with questions or change in signs or symptoms. Care Goals: Complete recovery. Follow-Up Care: Home Health - RN, Home Health - PT, Home Health - OT No Smoking: If you smoke, Please STOP! Call for help. Follow-up with: Erwin Pruett MD [Primary Care Provider] -
[2022-03-21 16:00] VITALS: BP 116/51
== END 2022-03-21 16:05 | disposition home health service (06) ==
LOC: EDUNIT# → ED 09:33 → MS2 14:34
PROVIDERS: ADMIT Surgery; ATTEND Surgery
DX: R10.31 Right lower quadrant pain (principal); K59.00 Constipation, unspecified; Z98.0 Intestinal bypass and anastomosis status; Z90.49 Acquired absence of other specified parts of digestive tract; Z66 Do not resuscitate; F41.9 Anxiety disorder, unspecified; E03.9 Hypothyroidism, unspecified; K21.9 Gastro-esophageal reflux disease without esophagitis; Z20.822 Contact with and (suspected) exposure to COVID-19
CPT/HCPCS: 36415; 74176; 80053; 81003; 83605; 83690; 85025; 87633; 96374; 96376; 99284; 99285; A9270; G0378; 81001; 87086

== ENCOUNTER 2022-03-26 09:47 | Outpatient (CLI) | payer MEDICARE, OTHER ==
[2022-03-26] MEDS ORDERED: DIATRIZOATE MEGLU/DIATRIZO SOD 30 ML BOTTLE PO ONE ×2 (10:10→11:30)
--- NOTE | 2022-03-26 15:19 | CT Report ---
PROCEDURE: Abdomen/Pelvis WO INDICATIONS: POST OP BLOATING TECHNIQUE: Noncontrast 5 mm thick sections acquired from the diaphragms to the symphysis. 5 mm coronal and sagi ttal reformats were then performed. For radiation dose reduction, the following was used: automated exposure control, adjustment of mA and/or kV according to patient size. COMPARISON: 03/20/2022 FINDINGS: Image quality: Excellent. ABDOMEN: Lung bases: Lung bases are clear. Heart size is normal. Solid organs: Liver and spleen are normal in size. Gallbladder has a normal appearance. Previously described stones are not seen on this study. Pancreas is normal in contours. No adrenal nodules. K idneys are normal in size, without hydronephrosis or nephrolithiasis. Peritoneum and bowel: There are postoperative changes of right hemicolectomy and ileocolic anastomosi s which appears intact without evidence of leak. Surrounding edematous changes are unchanged and like ly postoperative. Nodes and vessels: No retroperitoneal or mesenteric adenopathy by size criteria. Aorta and inferior vena cava are normal in caliber. Miscellaneous: No ventral hernias. PELVIS: Genitourinary: Bladder wall thickness is normal. Miscellaneous: No inguinal hernias or adenopathy. Bones: No suspicious bony lesions. No vertebral body compression fractures. IMPRESSION: 1. Postoperative changes of right hemicolectomy and ileocolic anastomosis with postprocedural edema w ith no evidence of contrast leakage. 1. No evidence of abscess. 2. No small bowel obstruction. Reviewed by: Arya Rouse on 03/26/2022 3:18 PM PDT Approved by: Arya Rouse on 03/26/2022 3:18 PM PDT Station ID: [id number]
== END 2022-03-26 09:48 | disposition home or self-care (01) ==
LOC: DI 09:47
PROVIDERS: ATTEND Surgery
DX: R14.0 Abdominal distension (gaseous) (principal); Z98.0 Intestinal bypass and anastomosis status
CPT/HCPCS: 74176; Q9963

== ENCOUNTER 2022-06-26 11:04 | Outpatient (CLI) | payer MEDICARE, OTHER | END 2022-06-26 23:59 | disposition short-term general hospital (02) | LOC: EMS 11:04 | DX: M79.604 Pain in right leg (principal); M25.551 Pain in right hip; R10.31 Right lower quadrant pain; W01.0XXA Fall on same level from slipping, tripping and stumbling without subsequent striking against object, initial encounter; Y92.481 Parking lot as the place of occurrence of the external cause | CPT/HCPCS: A0425; A0427 ==

== ENCOUNTER 2023-10-01 08:00 | Outpatient (CLI) | payer MEDICARE, OTHER ==
--- NOTE | 2023-10-01 14:16 | XRAY Report ---
PROCEDURE: Shoulder 3 View LT INDICATIONS: LEFT SHOULDER PAIN TECHNIQUE: 3 views of the shoulder were acquired. COMPARISON: X-ray shoulder 11/25/2022. FINDINGS: Bones: No fractures or dislocations. No suspicious bony lesions. Visualized ribs appear intact. Moderate to severe acromioclavicular and severe glenohumeral degenerative narrowing. Subchondral scle rosis is present clinically the glenohumeral joint. Subchondral sclerosis and periarticular cystic ch anges. Prominent humeral osteophyte is present. Overall appearance is slightly progressive. Soft tissues: No suspicious soft tissue calcifications. The visualized lungs are within normal limi ts. 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 Reviewed by: Jackie Pichardo MD on 10/01/2023 2:15 PM PDT Approved by: Jackie Pichardo MD on 10/01/2023 2:15 PM PDT Station ID: [id number]
== END 2023-10-01 23:59 | disposition home or self-care (01) ==
LOC: DI.WOS 08:00
PROVIDERS: ATTEND Physician Assistant Surgical
DX: M19.012 Primary osteoarthritis, left shoulder (principal)

== ENCOUNTER 2023-10-25 06:41 | Outpatient (CLI) | payer MEDICARE, OTHER | END 2023-10-25 23:59 | disposition critical access hospital (66) | LOC: EMS 06:41 | DX: M25.512 Pain in left shoulder (principal); M54.9 Dorsalgia, unspecified; R07.89 Other chest pain | CPT/HCPCS: A0425; A0429 ==

== ENCOUNTER 2023-10-25 06:54 | Emergency (ER) | payer MEDICARE, OTHER ==
--- NOTE | 2023-10-25 07:05 | ED Physician Documentation ---
PD HPI CHEST PAIN - Stated complaint Stated Complaint: CP - History obtained from History obtained from: Patient, EMS - History of Present Illness Timing - onset: Last night Timing - onset during: Rest, Light activity Timing - duration: Hours (8-10) Timing - details: Gradual onset, Still present (onset of left shoulder pain radiating into left chest now. Worse with ROM of the shoulder.) Quality: Aching, Pain Location: Left chest, Left shoulder/arm Radiation: No: Neck, Back Improved by: Rest Worsened by: Movement. 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 : None, Frequency, Other HEENT: Chronic vision loss, Chronic hearing loss Psych: Anxiety, Panic attacks Musculoskeletal: Osteoarthritis, Chronic back pain Derm: None - Past Surgical History Past Surgical History: Yes General: Appendectomy, Bowel surgery, Colonoscopy, 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: Hysterectomy HEENT: Cataracts - Present Medications Home Medications: Ambulatory Orders Medication Instructions Recorded Confirmed Sertraline [Zoloft] 25 mg PO DAILY 08/03/14 10/25/23 Acetaminophen [Tylenol] 500 mg PO DAILY PRN 03/06/22 10/25/23 Ibuprofen [Motrin] 400 mg PO DAILY PRN 03/06/22 10/25/23 Cholecalciferol [Vitamin D3] 1 tab ORAL DAILY 05/07/22 10/25/23 Multivitamin 2 tab ORAL DAILY 05/07/22 10/25/23 Meloxicam [Mobic] 7.5 mg PO BID 10 Days #20 tablet 10/25/23 Olmesartan/Hydrochlorothiazide 1 each PO DAILY 10/25/23 10/25/23 [Olmesartan-Hctz 40-12.5 mg Tab] - Allergies Allergies/Adverse Reactions: Allergies Allergy/AdvReac Type Severity Reaction Status Date / Time ergot alkaloids Allergy Rash Verified 10/25/23 07:12 - Social History Does the pt smoke?: No Smoking Status: Unknown if ever smoked Does the pt drink ETOH?: No Does the pt have substance abuse?: No - Immunizations Immunizations are current?: Yes - POLST Patient has POLST: No PD ED PE NORMAL - Vitals Vital signs reviewed: Yes - General General: Alert and oriented X 3, No acute distress, Well developed/nourished - Neck Neck: Supple, no meningeal sign, No adenopathy - Cardiac Cardiac: RRR, No murmur - Respiratory Respiratory: No respiratory distress, Clear bilaterally, Other (some chestwall tenderness left upper parasternal area and upper pectoral. ) - Abdomen Abdomen: Soft, Non tender - Derm Derm: Normal color, Warm and dry, No rash Results - Vitals Vitals: Vital Signs - 24 hr 10/25/23 10/25/23 07:08 08:38 Temperature 36.2 C L Heart Rate 75 58 L Respiratory 20 12 Rate Blood Pressure 175/74 H 136/80 H O2 Saturation 99 96 Oxygen O2 Source Room air - EKG (time done) 07:08 EKG releavant findings:: EKG personally interpreted by author of this note. Relevant findings are: Rate: Rate (enter#) (66) Rhythm: NSR [place]: Normal Intervals: Normal MS QRS: Normal Ischemia: Normal ST segments. No: ST elevation c/w ischemia, ST depression - Labs Labs: Laboratory Tests 10/25/23 10/25/23 10/25/23 07:32 07:32 07:32 WBC 7.4 RBC 4.15 L Hgb 13.1 Hct 41.1 MCV 99.0 MCH 31.6 H MCHC 31.9 L RDW 13.6 Plt Count 251 MPV 10.2 Neut # (Auto) 5.1 Lymph # (Auto) 1.6 [place] # (Auto) 0.6 Eos # (Auto) 0.1 Baso # (Auto) 0.0 Absolute Nucleated RBC 0.00 Nucleated RBC % 0.0 Sodium 138 Potassium 4.3 Chloride 105 Carbon Dioxide 27 Anion Gap 6.0 BUN 23 H Creatinine 0.7 Estimated GFR (MDRD) 79 L Glucose 116 H Calcium 11.3 H Total Bilirubin 0.6 AST 18 ALT 14 Alkaline Phosphatase 71 Troponin I High Sens 5.8 B-Natriuretic Peptide 29 Total Protein 7.4 Albumin 4.2 Globulin 3.2 Albumin/Globulin Ratio 1.3 Lipase 30 - Rads (name of study) chest xray Relevant Findings:: Prelim report reviewed, EMP independent interpretation of test (no acute process) PD Medical Decision Making - ED course Complexity details: reviewed results (ECG, CXR, trop are normal. ), considered differential (onset last evening of left shoulder to chest pain that sounds musculoskeletal. No URI. No rash but would be early for shingles, no mechanical cause such as fall or injury. ECG,CXR,troponin are negative, which is convincing against serious cause given duration of pain. Treat with NSAIDs. ), d/w patient Departure - Departure Disposition: Home, Self Care Clinical Impression: Right-sided chest wall pain Condition: Stable Record reviewed to determine appropriate education?: Yes Instructions: ED Chest Pain Atypical Unkn Cause Follow-Up: Erwin Pruett MD [Primary Care Provider] - Prescriptions: Meloxicam [Mobic] 7.5 mg PO BID 10 Days #20 tablet Comments: Your EKG, chest x-ray, blood tests are normal. The blood tests include a basic blood count with white count and hemoglobin, and the chemistry panel includes kidney function, electrolytes, blood sugar and liver function. These are all normal with the very minimal impairment of kidney function. Other particular blood tests are troponin and BNP which look for signs of heart muscle injury and heart failure. These are both well normal. At this point no signs of more significant causes to your shoulder and chest tr n. It sounds musculoskeletal at this time and we will treat it with some anti- inflammatories. For this evening you can use ibuprofen 400 to 600 mg dinnertime and then bedtime. I then wrote for meloxicam which is a longer half-life so he can take it just twice daily for the next 7 to 10 days. I would anticipate improvement in your symptoms over the next several days or so with this. Add Tylenol 500 to 650 mg 4 times daily for pain as well. Recheck if not improving over the next several days and resolved by 4 to 5 days. Recheck also if you develop other symptoms that may suggest alternate initial cause. This could include cough, fever, skin rash, numbness or swelling of the arm or any other concerns. That could change the thought process on the cause of the pain as it presents early. I sent your prescription to the [facility] pharmacy here in [place]. They should be open tomorrow. Forms: PCP List Discharge Date/Time: 10/25/23 08:47
[2023-10-25 07:44] LABS: BASOPHILS % (AUTO) 0.4 %; EOSINOPHILS # (AUTO) 0.1 10^3/uL (0.0-0.7); EOSINOPHILS % (AUTO) 0.7 %; HCT - HEMATOCRIT 41.1 % (37.0-47.0); HGB - HEMOGLOBIN 13.1 g/dL (12.0-16.0); LYMPHOCYTES # (AUTO) 1.6 10^3/uL (1.5-3.5); LYMPHOCYTES % (AUTO) 21.5 %; MEAN CORPUSCULAR HEMOGLOBIN 31.6 pg (27.0-31.0); MEAN CORPUSCULAR HGB CONC 31.9 g/dL (32.0-36.0); MEAN PLATELET VOLUME 10.2 fL (7.9-10.8); MONOCYTES # (AUTO) 0.6 10^3/uL (0.0-1.0); MONOCYTES % (AUTO) 7.7 %; NEUTROPHILS # (AUTO) 5.1 10^3/uL (1.5-6.6); NEUTROPHILS % (AUTO) 68.6 %; PLT - PLATELET COUNT 251 10^3/uL (130-450); RED BLOOD COUNT 4.15 10^6/uL (4.20-5.40); RED CELL DISTRIBUTION WIDTH 13.6 % (12.0-15.0); WHITE BLOOD COUNT 7.4 x10^3/uL (4.8-10.8)
[2023-10-25] MEDS: KETOROLAC 15 MG/ML VIAL IVP STA (07:47)
[2023-10-25] MEDS: MORPHINE 2 MG/ML CARPUJECT IVP STA (07:47)
[2023-10-25 07:51] LABS: ALBUMIN 4.2 g/dL (3.2-5.5); ALBUMIN/GLOBULIN RATIO 1.3 (1.0-2.2); BILIRUBIN,TOTAL 0.6 mg/dL (0.2-1.0); CALCIUM 11.3 mg/dL (8.5-10.3); CREATININE 0.7 mg/dL (0.6-1.3); POTASSIUM 4.3 mmol/L (3.5-4.5); TOTAL PROTEIN 7.4 g/dL (6.4-8.9)
--- NOTE | 2023-10-25 07:51 | XRAY Report ---
PROCEDURE: Chest 1V INDICATIONS: Chest Pain TECHNIQUE: One view of the chest was acquired. COMPARISON: Chest CT with contrast dated 09/23/2023. FINDINGS: Surgical changes and devices: None. Lungs and pleura: No pleural effusions or pneumothorax. Mild diffuse interstitial prominence. Mediastinum: Mediastinal contours appear normal. Heart size is normal. Bones and chest wall: No suspicious bony lesions. Overlying soft tissues appear unremarkable. IMPRESSION: Mild diffuse interstitial prominence. Reviewed by: Lito Clifton MD on 10/25/2023 7:50 AM PDT Approved by: Lito Clifton MD on 10/25/2023 7:50 AM PDT Station ID: [id number]
[2023-10-25 07:58] LABS: TROPONIN I HIGH SENSITIVITY 5.8 ng/L (2.3-14.8)
[2023-10-25 08:49] VITALS: BP 136/80; O2SAT 96
== END 2023-10-25 08:47 | disposition home or self-care (01) ==
LOC: EDUNIT# → ED 06:54
DX: R07.9 Chest pain, unspecified (principal); I10 Essential (primary) hypertension; E03.9 Hypothyroidism, unspecified
CPT/HCPCS: 36415; 80053; 83690; 83880; 84484; 85025; 93005; 96374; 99285

== ENCOUNTER 2023-11-20 07:59 | Outpatient (CLI) | payer MEDICARE, OTHER ==
[2023-11-20 08:14] LABS: BASOPHILS % (AUTO) 0.5 %; EOSINOPHILS # (AUTO) 0.1 10^3/uL (0.0-0.7); HGB - HEMOGLOBIN 12.1 g/dL (12.0-16.0); LYMPHOCYTES # (AUTO) 1.6 10^3/uL (1.5-3.5); LYMPHOCYTES % (AUTO) 26.5 %; MEAN CORPUSCULAR HEMOGLOBIN 31.3 pg (27.0-31.0); MONOCYTES # (AUTO) 0.5 10^3/uL (0.0-1.0); MONOCYTES % (AUTO) 8.4 %; NEUTROPHILS # (AUTO) 3.9 10^3/uL (1.5-6.6); NEUTROPHILS % (AUTO) 62.5 %; PLT - PLATELET COUNT 222 10^3/uL (130-450); RED BLOOD COUNT 3.86 10^6/uL (4.20-5.40); RED CELL DISTRIBUTION WIDTH 13.9 % (12.0-15.0); WHITE BLOOD COUNT 6.2 x10^3/uL (4.8-10.8)
[2023-11-20 08:34] LABS: ALBUMIN 4.4 g/dL (3.2-5.5); ALBUMIN/GLOBULIN RATIO 1.5 (1.0-2.2); ALKALINE PHOSPHATASE 62 IU/L (42-121); ALT ALANINE AMINOTRANSFERASE 14 IU/L (10-60); AST ASPARTATE AMINOTRANSFERASE 22 IU/L (10-42); BILIRUBIN,TOTAL 0.5 mg/dL (0.2-1.0); BUN - BLOOD UREA NITROGEN 31 mg/dL (6-20); CALCIUM 10.7 mg/dL (8.5-10.3); CARBON DIOXIDE - CO2 27 mmol/L (21-32); CHLORIDE 107 mmol/L (101-111); CHOL/HDL RATIO 3.6 (<4.4); CHOLESTEROL 269 mg/dL; CREATININE 0.9 mg/dL (0.6-1.3); GFR - MDRD 59 (>89); GLUCOSE 107 mg/dL (74-104); HDL CHOLESTEROL 75 mg/dL; LDL CHOLESTEROL,CALCULATED 162 mg/dL; LDL/HDL RATIO 2.2 (<4.4); POTASSIUM 4.3 mmol/L (3.5-4.5); SODIUM 139 mmol/L (135-145); TOTAL PROTEIN 7.4 g/dL (6.4-8.9); TRIGLYCERIDES 161 mg/dL (48-352); VLDL CHOLESTEROL 32 mg/dL
[2023-11-20 08:40] LABS: THYROID STIMULATING HORMONE 0.95 uIU/mL (0.34-5.60)
[2023-11-20 10:13] LABS: ESTIMATED AVERAGE GLUCOSE 120 mg/dL (70-100); HEMOGLOBIN A1c% 5.8 % (4.27-6.07)
== END 2023-11-20 08:00 | disposition home or self-care (01) ==
LOC: LAB 07:59
PROVIDERS: ATTEND Family Medicine
DX: I10 Essential (primary) hypertension (principal); R26.81 Unsteadiness on feet; H91.93 Unspecified hearing loss, bilateral; Z97.4 Presence of external hearing-aid; C18.0 Malignant neoplasm of cecum; R73.9 Hyperglycemia, unspecified; D64.9 Anemia, unspecified; E03.9 Hypothyroidism, unspecified; G56.01 Carpal tunnel syndrome, right upper limb
CPT/HCPCS: 36415; 80053; 80061; 83036; 83721; 84443; 85025

== ENCOUNTER 2023-12-19 11:12 | Emergency (ER) | payer MEDICARE, OTHER ==
--- NOTE | 2023-12-19 11:46 | ED Physician Documentation ---
PD HPI UPPER EXT INJURY - Stated complaint Stated Complaint: GLF - Chief complaint Chief Complaint: Trauma Ext - History obtained from History obtained from: Patient - History of Present Illness Location: Left, Forearm, Wrist, Hand Type of injury: Fall Where injury occurred: Home - Additonal information Additional information: 88-year-old female presents with a left arm injury after a minor fall at home. The patient was bending over on the ground cleaning things up in her kitchen but then lost her balance and tried to grab the counter to pull her self up but she was not strong enough and she fell down onto her backside and outstretched left hand/forearm. It she did not hit her head, states she did land on her buttocks but denies any hip or pelvis pain other than her chronic pain in the area, and is mainly concerned about left wrist pain and minor swelling. 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: Hysterectomy HEENT: Cataracts - Present Medications Home Medications: Ambulatory Orders Medication Instructions Recorded Confirmed Sertraline [Zoloft] 25 mg PO DAILY 08/03/14 10/25/23 Acetaminophen [Tylenol] 500 mg PO DAILY PRN 03/06/22 10/25/23 Ibuprofen [Motrin] 400 mg PO DAILY PRN 03/06/22 10/25/23 Cholecalciferol [Vitamin D3] 1 tab ORAL DAILY 05/07/22 10/25/23 Multivitamin 2 tab ORAL DAILY 05/07/22 10/25/23 Meloxicam [Mobic] 7.5 mg PO BID 10 Days #20 tablet 10/25/23 Olmesartan/Hydrochlorothiazide 1 each PO DAILY 10/25/23 10/25/23 [Olmesartan-Hctz 40-12.5 mg Tab] - Allergies Allergies/Adverse Reactions: Allergies Allergy/AdvReac Type Severity Reaction Status Date / Time ergot alkaloids Allergy Rash Verified 12/19/23 11:31 - Social History Does the pt smoke?: No Smoking Status: Never smoker Does the pt drink ETOH?: No Does the pt have substance abuse?: No - Immunizations Immunizations are current?: Yes - POLST Patient has POLST: No PD ED PE NORMAL - Vitals Vital signs reviewed: Yes - General General: Alert and oriented X 3, No acute distress, Well developed/nourished - HEENT HEENT: Atraumatic, Moist mucous membranes - Derm Derm: Normal color, Warm and dry, Other (bruising medial left wrist) - Extremities Extremities: Other (Mild tenderness of the left wrist with trace swelling and contusion at the left wrist, she is able to flex and extend some pain primarily with extension.) - Neuro Neuro: Alert and oriented X 3 Eye Opening: Spontaneous Motor: Obeys Commands Verbal: Oriented GCS Score: 15 Results - Vitals Vitals: Vital Signs - 24 hr 12/19/23 12/19/23 11:27 13:12 Temperature 36.3 C L Heart Rate 81 78 Respiratory 15 15 Rate Blood Pressure 182/78 H 174/94 H O2 Saturation 99 98 Oxygen O2 Source Room air PD Medical Decision Making - ED course Complexity details: reviewed results, d/w patient ED course: 88-year-old female presented after a fall on outstretched left hand. She was complaining of left wrist pain rating up into the forearm. On exam she has mild swelling and tenderness at the left wrist no obvious deformity. She has good range of motion of the wrist elbow fingers upper arm. We did obtain imaging of the forearm wrist area and there are no obvious fractures on exam. Patient advised that she likely has a sprain and there is some area of contusion as well that is likely causing her some discomfort, so I recommended supportive measures including cool compress, ibuprofen or Tylenol. I offered a splint however patient declined. No other injuries noted on exam and the patient is very well-appearing at time of discharge and ambulatory out of the ER with her daughter. Departure - Departure Disposition: 01 Home, Self Care Clinical Impression: Left wrist sprain Qualifiers: Encounter type: initial encounter Qualified Code(s): S63.502A - Unspecified spr ain of left wrist, initial encounter Condition: Good Instructions: ED Sprain Wrist Forms: PCP List Discharge Date/Time: 12/19/23 13:14
--- NOTE | 2023-12-19 12:50 | XRAY Report ---
PROCEDURE: Wrist 3+V LT INDICATIONS: foosh TECHNIQUE: 4 views of the wrist were acquired. Comment 2 views of the forearm COMPARISON: None. FINDINGS: Bones: No fractures or dislocations. No suspicious bony lesions. Moderate radiocarpal osteoarthri tic changes with joint space narrowing, subchondral sclerosis and cystic changes. Soft tissues: No suspicious soft tissue calcifications or masses. IMPRESSION: No acute bony abnormality. If there is anatomic snuff box tenderness, consider wrist immobilization a nd repeat radiographs in 10-14 days or cross-sectional imaging now. If pain persists with conservativ e management, consider repeat radiographs in 10-14 days or cross-sectional imaging. Reviewed by: Tang Newman MD on 12/19/2023 11:49 AM ALEJANDRA Approved by: Tang Newman MD on 12/19/2023 11:49 AM ALEJANDRA Station ID: [id number]
[2023-12-19 13:16] VITALS: BP 174/94; O2SAT 98
== END 2023-12-19 13:14 | disposition home or self-care (01) ==
LOC: ED 11:12
DX: S63.502A Unspecified sprain of left wrist, initial encounter (principal); W18.39XA Other fall on same level, initial encounter; I10 Essential (primary) hypertension; E03.9 Hypothyroidism, unspecified; Z79.899 Other long term (current) drug therapy
CPT/HCPCS: 99283

== ENCOUNTER 2024-08-25 17:38 | Inpatient (IN) ==
--- NOTE | 2024-08-25 17:49 | ED Physician Documentation ---
History of Present Illness Stated complaint Stated Complaint: WEAKNESS/DIARRHEA Chief complaint Chief Complaint: General Additonal information Additional information: 89-year-old female with history of hypertension, osteoporosis, depression, anxiety, hypothyroidism, splenic artery aneurysm, colon cancer, constipation presents to the emergency department via EMS for increased shortness of breath nausea vomiting diarrhea. Patient reports that she has chronic diarrhea for years this is nothing out of an ordinary for her she has nausea with no emesis she just feels like she is coughing so much that the phlegm causes her to gag and throw up. She has been noting some mild redness to her phlegm she also reports that she has had multiple COVID exposures from her caregivers to come and check on her at her house periodically as well as many family and friends. She comes in on supplemental oxygen because she was found to be around 87% on room air according to EMS patient denies any history of ever requiring oxygen in the past. Unsure how high her fevers and chills have been. [place] Coma Scale Assess Eye opening: Spontaneous Verbal response: Oriented Motor response: Obeys Commands Total score: 15 Meds/Allgy Home Medications Ambulatory Orders Medication Instructions Recorded Confirmed hydroxyzine HCl 25 mg tablet 25 mg PO UD PRN As Needed Per 03/30/24 08/08/24 Provider Orders multivitamin 1 tab PO DAILY 05/03/24 08/08/24 olmesartan 40 mg tablet 40 mg PO QDAY 90 days #90 tabs 05/03/24 08/08/24 sertraline 25 mg tablet 25 mg PO QDAY 90 days #90 tabs 05/03/24 08/08/24 calcium 600 mg (as cap PO 08/08/24 08/08/24 carbonate)-vitamin D3 10 mcg (400 unit) capsule cholecalciferol (vitamin D3) 25 25 mcg PO QDAY 08/08/24 08/08/24 mcg (1,000 unit) chewable tablet (Vitamin D3) coQ10 (ubiquinol) 100 mg capsule 100 mg PO BID 08/08/24 08/08/24 (Qunol Td CoQ10) meloxicam 15 mg tablet 15 mg PO QDAY #90 tabs 08/08/24 08/08/24 turmeric root extract 500 mg 500 mg PO BID 08/08/24 08/08/24 capsule Allergies Allergies Allergy/AdvReac Type Severity Reaction Status Date / Time ergot alkaloids Allergy Rash Verified 08/25/24 17:53 naproxen AdvReac Intermediate Cramps Verified 08/25/24 17:53 [facility] Medical History Medical History (Updated 08/25/24 @ 20:40 by WES Espino) Nightmare disorder Unspecified intracapsular fracture of right femur, sequela Impingement syndrome of left shoulder Syncope Back pain Dehydration Cancer of right colon Mastoiditis Hypertension Fracture of right hip Arthritis Surgical History Surgical History (Updated 07/07/24 @ 10:20 by Olya Torrez RN) H/O colectomy History of carpal tunnel release Family History Family History (Updated 08/08/24 @ 12:02 by Ping Shaffer LPN) Mother Colon cancer Sister Breast cancer Brother Cancer Aunt Breast cancer Social History Social History (Updated 08/08/24 @ 11:58 by Ping Shaffer LPN) Smoking Status: Never smoker Second hand tobacco smoke exposure: Yes Do you dip or chew tobacco?: No Do you vape?: No Patient requests smoking cessation consult: No Initiate information on smoking cessation: No Living arrangement: At home Marital Status: Single Living Condition: Alone Support Person: Yes Relationship: Caregiver Physical Activity: Walking Level: Assisted Home Mobility Equipment: Wheeled walker Do you feel safe in your home environment?: Yes Suffered physical, verbal, emotional, or financial abuse?: No History of Abuse: No ETOH Use: None Substance Use: denies use 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, 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 Known occupational exposures/hazards (Current/Previous): None known Service: No Are you following a diet prescribed by a doctor: No Are you following a special diet: No POLST Patient has POLST: No Exam Constitutional normal general appearance, no apparent distress, average body habitus, no limitations and alert HENMT normocephalic Eyes PERRL Lymph no lymphadenopathy noted Chest inspection of chest normal and palpation of chest normal Respiratory breath sounds unequal (Bilateral rhonchi scattered throughout), abnormal respiratory effort and no use of accessory muscles Cardiovascular heart rate abnormal (tachycardic) and regular rhythm noted Gastrointestinal abdomen normal to inspection Genitourinary no CVA tenderness Extremities normal to inspection, normal to palpation, no tenderness and full ROM Skin skin color normal and no rash Results Vitals Vitals: Vital Signs - 24 hr 08/25/24 17:49 08/25/24 19:22 08/25/24 19:45 Temperature 37.4 C Temperature Source Oral Pulse Rate 90 80 Respiratory Rate 20 20 Blood Pressure 133/70 H 134/79 H O2 Saturation 93 87 L 92 O2 Source Room air Room air Room air Pain Intensity 0 Oxygen O2 Source Room air Labs Labs: Laboratory Tests 08/25/24 18:09 WBC 10.2 RBC 3.88 L Hgb 12.2 Hct 37.1 MCV 95.6 MCH 31.4 H MCHC 32.9 RDW 14.6 Plt Count 177 MPV 10.9 H Neut # (Auto) 8.6 H Lymph # (Auto) 0.9 L [place] # (Auto) 0.7 Eos # (Auto) 0.0 Baso # (Auto) 0.0 Absolute Nucleated RBC 0.00 Nucleated RBC % 0.0 Sodium 134 L Potassium 3.5 Chloride 100 L Carbon Dioxide 23 Anion Gap 11.0 BUN 33 H Creatinine 1.1 Estimated GFR (MDRD) 47 L Glucose 137 H Calcium 9.2 Total Bilirubin 0.6 AST 32 ALT 19 Alkaline Phosphatase 45 Total Protein 7.5 Albumin 4.2 Globulin 3.3 Albumin/Globulin Ratio 1.3 Nasal Adenovirus (PCR) NOT DETECTED Nasal B. parapertussis DNA (PCR) NOT DETECTED Nasal Coronavir 229E PCR NOT DETECTED Nasal Coronavir HKU1 PCR NOT DETECTED Nasal Coronavir NL63 PCR NOT DETECTED Nasal Coronavir OC43 PCR NOT DETECTED Nasal Enterovir/Rhinovir PCR NOT DETECTED Nasal Influ A H1 2009 PCR DETECTED A Nasal Influenza B PCR NOT DETECTED Nasal Parainfluen 1 PCR NOT DETECTED Nasal Parainfluen 2 PCR NOT DETECTED Nasal Parainfluen 3 PCR NOT DETECTED Nasal Parainfluen 4 PCR NOT DETECTED Nasal RSV (PCR) NOT DETECTED Nasal B.pertussis DNA PCR NOT DETECTED Nasal C.pneumoniae (PCR) NOT DETECTED [place] Human Metapneumo PCR NOT DETECTED Nasal M.pneumoniae (PCR) NOT DETECTED Nasal SARS-CoV-2 (PCR) NOT DETECTED Rads (name of study) Chest x-ray: Relevant Findings:: Final report received and EMP independent i nterpretation of test Interpretation: IMPRESSION: Mild basilar predominant reticulonodular opacities are nonspecific and may be secondary to edema versus a viral or atypical pneumonia or possibly aspiration. PD Medical Decision Making ED course ED course: 89-year-old female presents emergency department for increased shortness of breath and acute respiratory failure. Differentials include upper respiratory infection, viral infection, pneumonia, pulmonary embolism. For symptoms patient was given a liter of lactated Ringer's, 125 mg of methylprednisolone, DuoNeb, Zofran. Chest x-ray is complete for further evaluation and it does appear the patient has mild basilar predominant reticulonodular opacities. We attempted to ambulate the patient again after medications have been given she remains hypoxic desats to low 80s on room air. reached out to On-call hospitalist Alayna Marino who is graciously agreed to admit the patient for acute respiratory failure with pneumonia and positive for influenza A. Patient was also started on Tamiflu. Patient is agreeable to be admitted. Discharge Plan Discharge Patient Disposition: 66 [facility] DC/Xfer Condition: Good Clinical Impression: Acute respiratory failure, Influenza A, Hypoxia Prescriptions: No Action olmesartan 40 mg tablet 40 mg PO QDAY 90 Days Qty: 90 3RF sertraline 25 mg tablet 25 mg PO QDAY 90 Days Qty: 90 3RF multivitamin Tablet 1 tab PO DAILY hydroxyzine HCl 25 MG tablet 25 mg PO UD PRN (Reason: As Needed Per Provider Orders) coQ10 (ubiquinol) [Qunol Td CoQ10] 100 mg capsule 100 mg PO BID calcium carbonate-vitamin D3 600 mg-10 mcg (400 unit) capsule PO turmeric root extract 500 mg capsule 500 mg PO BID cholecalciferol (vitamin D3) [Vitamin D3] 25 mcg (1,000 unit) tablet,chewable 25 mcg PO QDAY meloxicam 15 mg tablet 15 mg PO QDAY Qty: 90 3RF Print Language: Hebrew
[2024-08-25] MEDS: LACTATED RINGERS 1,000 ML IV STA (18:15)
[2024-08-25] MEDS: ONDANSETRON 4 MG/2 ML VIAL IVP STA (18:16)
[2024-08-25 18:24] LABS: BASOPHILS % (AUTO) 0.1 %; HCT - HEMATOCRIT 37.1 % (37.0-47.0); HGB - HEMOGLOBIN 12.2 g/dL (12.0-16.0); LYMPHOCYTES # (AUTO) 0.9 10^3/uL (1.5-3.5); LYMPHOCYTES % (AUTO) 8.4 %; MEAN CORPUSCULAR HEMOGLOBIN 31.4 pg (27.0-31.0); MEAN CORPUSCULAR HGB CONC 32.9 g/dL (32.0-36.0); MEAN CORPUSCULAR VOLUME 95.6 fL (81.0-99.0); MEAN PLATELET VOLUME 10.9 fL (7.9-10.8); MONOCYTES # (AUTO) 0.7 10^3/uL (0.0-1.0); MONOCYTES % (AUTO) 7.1 %; NEUTROPHILS # (AUTO) 8.6 10^3/uL (1.5-6.6); NEUTROPHILS % (AUTO) 83.9 %; PLT - PLATELET COUNT 177 10^3/uL (130-450); RED BLOOD COUNT 3.88 10^6/uL (4.20-5.40); RED CELL DISTRIBUTION WIDTH 14.6 % (12.0-15.0); WHITE BLOOD COUNT 10.2 x10^3/uL (4.8-10.8)
[2024-08-25 18:33] LABS: ALBUMIN 4.2 g/dL (3.2-5.5); ALBUMIN/GLOBULIN RATIO 1.3 (1.0-2.2); BILIRUBIN,TOTAL 0.6 mg/dL (0.2-1.0); CALCIUM 9.2 mg/dL (8.5-10.3); CREATININE 1.1 mg/dL (0.6-1.3); POTASSIUM 3.5 mmol/L (3.5-4.5); TOTAL PROTEIN 7.5 g/dL (6.4-8.9)
[2024-08-25 19:22] LABS: B. PARAPERTUSSIS- RESP PCR PAN NOT DETECTED; B. PERTUSSIS- RESP PCR PANEL NOT DETECTED; C. PNEUMONIAE- RESP PCR PANEL NOT DETECTED; CORONAVIRUS 229E-RESP PCR NOT DETECTED; CORONAVIRUS HKU1-RESP PCR NOT DETECTED; CORONAVIRUS NL63-RESP PCR NOT DETECTED; CORONAVIRUS OC43-RESP PCR NOT DETECTED; HUMAN METAPNEUMOVIRUS NOT DETECTED; INFLUENZA A H1 2009- RESP PCR DETECTED; INFLUENZA B - RESP PCR PANEL NOT DETECTED; M. PNEUMONIAE- RESP PCR PANEL NOT DETECTED; PARAINFLUENZA VIRUS 1 NOT DETECTED; PARAINFLUENZA VIRUS 2 NOT DETECTED; PARAINFLUENZA VIRUS 4 NOT DETECTED; RHINOVIRUS/ENTEROVIRUS NOT DETECTED; RSV- RESP PCR PANEL NOT DETECTED; SARS-CoV-2 -RESP PCR PANEL NOT DETECTED
[2024-08-25] MEDS: OSELTAMIVIR 75 MG CAPSULE PO STA (19:44)
[2024-08-25] MEDS: methylPREDNISolone SUCCINATE 125 MG/2 ML VIAL IVP STA (20:00)
[2024-08-25] MEDS: IPRATROPIUM/ALBUTEROL 3 ML NEB INH STA (20:10)
--- NOTE | 2024-08-25 20:11 | XRAY Report ---
PROCEDURE: XR Chest 1V INDICATIONS: cough, hypoxia TECHNIQUE: One view of the chest was acquired. COMPARISON: Chest radiographs 10/25/2023. FINDINGS: Surgical changes and devices: None. Lungs and pleura: Mild bilateral reticulonodular opacities most prominent at the lung bases. No pleu ral effusion or pneumothorax. Mediastinum: Mediastinal contours appear normal. Heart size is normal. Bones and chest wall: No suspicious bony lesions. Overlying soft tissues appear unremarkable. Sev ere left glenohumeral osteoarthrosis. IMPRESSION: Mild basilar predominant reticulonodular opacities are nonspecific and may be secondary to edema vers us a viral or atypical pneumonia or possibly aspiration. Reviewed by: Leonides Vergara MD on 08/25/2024 8:10 PM PST Approved by: Leonides Vergara MD on 08/25/2024 8:10 PM PST Station ID: [id number]
--- NOTE | 2024-08-25 20:41 | HISTORY & PHYSICAL EXAMINATION ---
Chief Complaint Chief Complaint Chief Complaint: weakness/diarrhea History of Present Illness Admitted From Admitted From:: home History Obtained From Records Reviewed: PCP notes History obtained from: patient History of Present Illness HPI Comment/Other: presents to the ED via EMS for 3 d hx of SOA and fatigue and cough. lives alone but caregivers come in and some have been sick. She thinks that they have had COVID., She does not get flu or covid shots. She has longstanding loose stools since even before her right colon resection for cancer in 2021. Otherwise she does well with minimal problems. Currently she is too weak and tired to care for herself. Does not have POLST. Son in [place] is her medical decision maker. We do not have that information on the chart. Meds/Allgy Home Medications Ambulatory Orders Medication Instructions Recorded Confirmed hydroxyzine HCl 25 mg tablet 25 mg PO UD PRN As Needed Per 03/30/24 08/08/24 Provider Orders multivitamin 1 tab PO DAILY 05/03/24 08/08/24 olmesartan 40 mg tablet 40 mg PO QDAY 90 days #90 tabs 05/03/24 08/08/24 sertraline 25 mg tablet 25 mg PO QDAY 90 days #90 tabs 05/03/24 08/08/24 calcium 600 mg (as cap PO 08/08/24 08/08/24 carbonate)-vitamin D3 10 mcg (400 unit) capsule cholecalciferol (vitamin D3) 25 25 mcg PO QDAY 08/08/24 08/08/24 mcg (1,000 unit) chewable tablet (Vitamin D3) coQ10 (ubiquinol) 100 mg capsule 100 mg PO BID 08/08/24 08/08/24 (Qunol Td CoQ10) meloxicam 15 mg tablet 15 mg PO QDAY #90 tabs 08/08/24 08/08/24 turmeric root extract 500 mg 500 mg PO BID 08/08/24 08/08/24 capsule Allergies Allergies Allergy/AdvReac Type Severity Reaction Status Date / Time ergot alkaloids Allergy Rash Verified 08/25/24 17:53 naproxen AdvReac Intermediate Cramps Verified 08/25/24 17:53 [facility] Medical History Medical History (Updated 08/25/24 @ 20:40 by WES Espino) Nightmare disorder Unspecified intracapsular fracture of right femur, sequela Impingement syndrome of left shoulder Syncope Back pain Dehydration Cancer of right colon Mastoiditis Hypertension Fracture of right hip Arthritis Surgical History Surgical History (Updated 07/07/24 @ 10:20 by Olya Torrez RN) H/O colectomy History of carpal tunnel release Family History Family History (Updated 08/08/24 @ 12:02 by Ping Shaffer LPN) Mother Colon cancer Sister Breast cancer Brother Cancer Aunt Breast cancer Social History Social History (Updated 08/08/24 @ 11:58 by Ping Shaffer LPN) Smoking Status: Never smoker Second hand tobacco smoke exposure: Yes Do you dip or chew tobacco?: No Do you vape?: No Patient requests smoking cessation consult: No Initiate information on smoking cessation: No Living arrangement: At home Marital Status: Single Living Condition: Alone Support Person: Yes Relationship: Caregiver Physical Activity: Walking Level: Assisted Home Mobility Equipment: Wheeled walker Do you feel safe in your home environment?: Yes Suffered physical, verbal, emotional, or financial abuse?: No History of Abuse: No ETOH Use: None Substance Use: denies use Occupation: [employer], 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 Known occupational exposures/hazards (Current/Previous): None known Service: No Are you following a diet prescribed by a doctor: No Are you following a special diet: No POLST Patient has POLST: No POLST Status: DNR Review of Systems Status of ROS: 10 or more systems reviewed and unremarkable except as noted in history and below Constitutional Reports: Fatigue, Malaise, Weakness and Poor appetite Eyes Denies: Vision loss or Change in vision Ears, nose, mouth, and throat Denies: Ear pain, Nasal discharge, Difficulty swallowing or Throat pain Cardiovascular Denies: Irregular heart rate, chest pain, palpitations or edema Respiratory Reports: Cough and Sputum production Gastrointestinal Reports: Diarrhea (chronic); Denies: Abdominal pain, Abdominal distention or Difficulty swallowing Musculoskeletal Denies: Extremity pain or Joint swelling Integumentary/Breast Denies: Rash Neurological Reports: General weakness; Denies: Headache Endocrine Reports: Fatigue Prior Level of Functionality: semi independent. has daily caregiver assistance. 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 She is satting in the 90s on 2 L via nasal cannula. She has a positive respiratory panel for influenza A and a chest x-ray which is suggestive of community-acquired pneumonia. I will treat her influenza A as well as her community-acquired pneumonia. I will place her on steroids for inflammation I will order DuoNebs and Mucinex.Her chemistry panel is significant for mild hyponatremia at 134. I will repeat BMP in the AM. Her CBC is completely unremarkable without leukocytosis normal H&H and normal platelet count. Patient was discussed with Amelia Brown and decision was made to admit due to her new oxygen requirement. I am admitting the patient to inpatient status as I believe she will need to stay in the hospital 2-3 nights to recover from her acute illness. I am anticipating that in the next 1 to 2 days she will need PT and OT evaluations to ascertain if she is safe to return home alone (2) Influenza A: Plan: Influenza A infection with symptoms for about 3 days, worsening. I have started Tamiflu 75 mg twice daily for a total of 10 doses. (3) Community acquired pneumonia: Plan: Chest x-ray shows mild bibasilar predominant reticulonodular opacities could be suggestive of pneumonia. I am treating the patient with 3 days of azithromycin and 5 days of Rocephin. I am adding Mucinex to help with expectoration of her sputum. I am adding DuoNebs to assist with bronchospasm. (4) Depression with anxiety: Plan: Chronic on sertraline. This has been resumed. (5) Hypothyroidism, unspecified: Plan: Chronic, on Synthroid. This has been resumed. (6) Essential (primary) hypertension: Plan: I will hold antihypertensives overnight. She is mildly hypertensive in the emergency department to the 130s. (7) Cancer of right colon: Plan: History of right colon resection for colon cancer. She refused all additional treatment. She has had chronic diarrhea since that time. Plan I have spent 78 minutes in the care of this patient today. This includes time [id number], review and ordering of diagnostic imaging and laboratory studies and consultation with other providers.. Monitoring the patient's signs symptoms, evaluation of medication effectiveness and patient's response to treatment. Lab Results Lab results reviewed: Yes 08/25/24 18:09 08/25/24 18:09 Core Measures Anticipated LOS I expect patient to be DC'd or transferred within 96 hours.: Yes Issues Hospital Issues and Management Plan: Acute hypoxic respiratory failure secondary to influenza A infection and community-acquired pneumonia we will treat for symptoms and to resolve hypoxia. Patient lives alone with caregiver support. Will need clearance by PT and OT prior to discharge home. There is a chance she will need usp rehab after this illness. DVT/VTE - Prophylaxis VTE/DVT Device ordered at admit?: Yes VTE/DVT Prophylaxis med ordered at admit?: Yes
[2024-08-25] MEDS: cefTRIAXone 1 GM VIAL IVP STA (20:42)
[2024-08-25] MEDS: AZITHROMYCIN INJ 500 MG in SODIUM CHLORIDE 0.9% 250 ML IV STA (20:47)
[2024-08-25] MEDS ORDERED: OLMESARTAN 40 MG PO SCH (22:01)
[2024-08-25] MEDS ORDERED: CHOLECALCIFEROL PO SCH (22:01)
[2024-08-25] MEDS ORDERED: ONDANSETRON ODT 4 MG TABLET TL PRN (22:01)
[2024-08-25] MEDS ORDERED: [UNRECOGNIZED DRUG - OTHER] PO SCH (22:01)
[2024-08-25] MEDS ORDERED: hydrOXYzine PAMOATE 25 MG CAPSULE PO PRN (22:01)
[2024-08-25] MEDS ORDERED: oxyCODONE 5 MG TABLET PO PRN (22:01)
[2024-08-25] MEDS ORDERED: IPRATROPIUM/ALBUTEROL 3 ML NEB INH PRN (22:06)
[2024-08-25] MEDS: HEPARIN 5,000 UNIT/ML VIAL SUBQ SCH (22:31)
[2024-08-25] MEDS: methylPREDNISolone SUCCINATE 40 MG/ML VIAL IVP SCH (22:31)
[2024-08-25] MEDS: guaiFENesin 600 MG TABLET PO SCH (22:31)
[2024-08-26] MEDS: SODIUM CHLORIDE FLUSH 0.9% 10 ML SYRINGE IVP SCH (03:13)
[2024-08-26 06:03] LABS: BASOPHILS % (AUTO) 0.1 %; HCT - HEMATOCRIT 34.8 % (37.0-47.0); HGB - HEMOGLOBIN 11.3 g/dL (12.0-16.0); LYMPHOCYTES # (AUTO) 0.6 10^3/uL (1.5-3.5); LYMPHOCYTES % (AUTO) 7.9 %; MEAN CORPUSCULAR HEMOGLOBIN 31.6 pg (27.0-31.0); MEAN CORPUSCULAR HGB CONC 32.5 g/dL (32.0-36.0); MEAN CORPUSCULAR VOLUME 97.2 fL (81.0-99.0); MEAN PLATELET VOLUME 11.4 fL (7.9-10.8); MONOCYTES # (AUTO) 0.2 10^3/uL (0.0-1.0); MONOCYTES % (AUTO) 3.1 %; NEUTROPHILS # (AUTO) 6.9 10^3/uL (1.5-6.6); NEUTROPHILS % (AUTO) 88.4 %; PLT - PLATELET COUNT 172 10^3/uL (130-450); RED BLOOD COUNT 3.58 10^6/uL (4.20-5.40); RED CELL DISTRIBUTION WIDTH 14.4 % (12.0-15.0); WHITE BLOOD COUNT 7.8 x10^3/uL (4.8-10.8)
[2024-08-26 06:19] LABS: CALCIUM 9.2 mg/dL (8.5-10.3); POTASSIUM 3.7 mmol/L (3.5-4.5)
[2024-08-26] MEDS: CHOLECALCIFEROL 25 MCG TABLET PO SCH (09:28)
[2024-08-26] MEDS: cefTRIAXone 1 GM VIAL IVP SCH (09:28)
[2024-08-26] MEDS: OSELTAMIVIR 75 MG CAPSULE PO SCH (09:30)
[2024-08-26] MEDS: SERTRALINE 25 MG TABLET PO SCH (09:30)
[2024-08-26] MEDS: LOSARTAN 50 MG TABLET PO SCH (09:30)
--- NOTE | 2024-08-26 14:11 | PHARMACY PROGRESS NOTE ---
Best Possible Medication History Admit Date and Time: 08/25/242036 Home Medications Medication Instructions Recorded Confirmed Type hydroxyzine HCl 25 mg tablet 25 mg PO UD PRN As Needed Per 03/30/24 08/26/24 History Provider Orders multivitamin 1 tab PO DAILY 05/03/24 08/26/24 History olmesartan 40 mg tablet 40 mg PO QDAY 90 days #90 tabs 05/03/24 08/26/24 Rx sertraline 25 mg tablet 25 mg PO QDAY 90 days #90 tabs 05/03/24 08/26/24 Rx cholecalciferol (vitamin D3) 25 25 mcg PO QDAY 08/08/24 08/26/24 History mcg (1,000 unit) chewable tablet (Vitamin D3) meloxicam 15 mg tablet 15 mg PO QDAY #90 tabs 08/08/24 08/26/24 Rx gabapentin 100 mg capsule 100 mg PO TID #90 caps 08/26/24 Rx Processed by: Pharmacy Medications reviewed in ED?: No Medication History completed: Yes Patient Interview: Completed Secondary Source(s): Insurance records [facility] Statement: Per [employer] records and [facility] interview. As the person ultimately responsible for medication therapy, providers are able to order a medication from an existing home medication list in [facility] via the "Reconcile Routine" prior to Confirmation of that medication by software support technician. Such practice is discouraged except when the physician, in their clinical judgment, deems that a medical need exists for a medication without regard to previous use.
--- NOTE | 2024-08-26 18:41 | PROVIDER PROGRESS NOTE ---
Subjective Prog Note Date Prog Note Date: 08/26/24 Subjective Subjective: She is very surprised at how tired she is. She feel better than yesterday though. in general, over the last 2 years, she states that she has less energy and she is frustrated by this. I had discussed code status with her yesterday, and she does not want to be "full code". She is concerned because she would like to take a shower. she feels that she has gotten very sweaty and dirty in the days that she has not felt well. Current Medications Current Medications Current Medications: Current Medications Generic Name Dose Route Start Last Admin Trade Name Freq PRN Reason Stop Dose Admin Acetaminophen 650 mg 08/25/24 22:01 Acetaminophen 325 Mg Tablet PO Q4HR PRN Pain 1 to 4, or Fever Albuterol/Ipratropium 3 ml 08/25/24 22:06 Ipratropium/Albuterol 3 Ml Neb INH RTQID PRN Shortness of Air/Wheezing Ceftriaxone Sodium 1 gm 08/26/24 09:00 08/26/24 09:28 Ceftriaxone 1 Gm Vial IVP 08/29/24 09:01 1 gm DAILY IVONE Administration Cholecalciferol 25 mcg 08/26/24 09:00 08/26/24 09:28 Cholecalciferol 25 Mcg Tablet PO 25 mcg DAILY IVONE Administration Guaifenesin 600 mg 08/25/24 23:00 08/26/24 09:28 Guaifenesin 600 Mg Tablet PO 600 mg BID IVONE Administration Heparin Sodium (Porcine) 5,000 unit 08/25/24 22:01 08/26/24 10:37 Heparin 5,000 Unit/Ml Vial SUBQ Not Given BID IVONE Azithromycin 500 mg/ Sodium 250 mls @ 250 mls/hr 08/26/24 21:00 Chloride IV 08/27/24 21:59 Q24H IVONE Losartan Potassium 100 mg 08/26/24 09:00 08/26/24 09:30 Losartan 50 Mg Tablet PO 100 mg DAILY IVONE Administration Methylprednisolone 40 mg 08/25/24 22:00 08/26/24 13:55 Methylprednisolone Succinate 40 Mg/Ml Vial IVP 08/28/24 14:01 40 mg TID IVONE Administration Ondansetron HCl 4 mg 08/25/24 22:01 Ondansetron Odt 4 Mg Tablet TL Q6HR PRN Nausea / Vomiting Oseltamivir Phosphate 75 mg 08/26/24 09:00 08/26/24 09:30 Oseltamivir 75 Mg Capsule PO 08/30/24 09:01 75 mg BID IVONE Administration Oxycodone HCl 5 mg 08/25/24 22:01 Oxycodone 5 Mg Tablet PO Q4HR PRN Pain 5 to 7 Sertraline HCl 25 mg 08/26/24 09:00 08/26/24 09:30 Sertraline 25 Mg Tablet PO 25 mg DAILY IVONE Administration Sodium Chloride 10 ml 08/25/24 22:01 Sodium Chloride Flush 0.9% 10 Ml Syringe IVP PRN PRN NEEDED PER PROVIDER ORDERS Sodium Chloride 10 ml 08/26/24 01:00 08/26/24 09:30 Sodium Chloride Flush 0.9% 10 Ml Syringe IVP 10 ml 0100,0900,1700 IVONE Administration Objective Vital Signs/Intake & Output Reviewed Vital Signs: Yes Vital Signs: Vital Signs x48h Temp Pulse Resp BP Pulse Ox 08/26/24 16:25 36.5 C 67 18 102/86 94 Intake & Output: Intake & Output 08/23/24 08/24/24 08/25/24 08/26/24 23:59 23:59 23:59 23:59 Intake Total 1250 / 1250 380 / 380 Balance 1250 / 1250 380 / 380 Weight (kg) 65 kg Objective General Appearance: positive No acute distress and Alert Eyes Bilateral: positive Normal inspection ENT: positive ENT inspection nml Neck: positive Nml inspection and Trachea midline Respiratory: positive Chest non-tender and No respiratory distress; negative Wheezes, Rales or Rhonchi Cardiovascular: positive Regular rate & rhythm Abdomen: positive No distention Skin: positive Color nml and No rash Extremities: positive No pedal edema Neurologic/Psychiatric: positive Oriented x3 Lab Results 08/26/24 05:22 08/26/24 05:22 Other Labs: Lab Results x24hrs 08/26/24 08/25/24 Range/Units 05:22 18:09 WBC 7.8 10.2 (4.8-10.8) x10^3/uL RBC 3.58 L 3.88 L (4.20-5.40) 10^6/uL Hgb 11.3 L 12.2 (12.0-16.0) g/dL Hct 34.8 L 37.1 (37.0-47.0) % MCV 97.2 95.6 (81.0-99.0) fL MCH 31.6 H 31.4 H (27.0-31.0) pg MCHC 32.5 32.9 (32.0-36.0) g/dL RDW 14.4 14.6 (12.0-15.0) % Plt Count 172 177 (130-450) 10^3/uL MPV 11.4 H 10.9 H (7.9-10.8) fL Neut # (Auto) 6.9 H 8.6 H (1.5-6.6) 10^3/uL Lymph # (Auto) 0.6 L 0.9 L (1.5-3.5) 10^3/uL Murray # (Auto) 0.2 0.7 (0.0-1.0) 10^3/uL Eos # (Auto) 0.0 0.0 (0.0-0.7) 10^3/uL Baso # (Auto) 0.0 0.0 (0.0-0.1) 10^3/uL Absolute Nucleated RBC 0.00 0.00 x10^3/uL Nucleated RBC % 0.0 0.0 /100WBC Sodium 136 134 L (135-145) mmol/L Potassium 3.7 3.5 (3.5-4.5) mmol/L Chloride 102 100 L (101-111) mmol/L Carbon Dioxide 25 23 (21-32) mmol/L Anion Gap 9.0 11.0 (6-13) BUN 33 H 33 H (6-20) mg/dL Creatinine 1.0 1.1 (0.6-1.3) mg/dL Estimated GFR (MDRD) 52 L 47 L (>89) Glucose 162 H 137 H (74-104) mg/dL Calcium 9.2 9.2 (8.5-10.3) mg/dL Total Bilirubin 0.6 (0.2-1.0) mg/dL AST 32 (10-42) IU/L ALT 19 (10-60) IU/L Alkaline Phosphatase 45 (42-121) IU/L Total Protein 7.5 (6.4-8.9) g/dL Albumin 4.2 (3.2-5.5) g/dL Globulin 3.3 (2.1-4.2) g/dL Albumin/Globulin Ratio 1.3 (1.0-2.2) Nasal Adenovirus (PCR) NOT DETECTED Nasal B. parapertussis DNA (PCR) NOT DETECTED Nasal Coronavir 229E PCR NOT DETECTED Nasal Coronavir HKU1 PCR NOT DETECTED Nasal Coronavir NL63 PCR NOT DETECTED Nasal Coronavir OC43 PCR NOT DETECTED Nasal Enterovir/Rhinovir PCR NOT DETECTED Nasal Influ A H1 2009 PCR DETECTED A Nasal Influenza B PCR NOT DETECTED Nasal Parainfluen 1 PCR NOT DETECTED Nasal Parainfluen 2 PCR NOT DETECTED Nasal Parainfluen 3 PCR NOT DETECTED Nasal Parainfluen 4 PCR NOT DETECTED Nasal RSV (PCR) NOT DETECTED Nasal B.pertussis DNA PCR NOT DETECTED Nasal C.pneumoniae (PCR) NOT DETECTED Maynor Human Metapneumo PCR NOT DETECTED Nasal M.pneumoniae (PCR) NOT DETECTED Nasal SARS-CoV-2 (PCR) NOT DETECTED Sepsis Event Note (H) Evaluation Current Stage of Sepsis: Resolved Possible source of Sepsis: positive Pulmonary Sepsis Criteria Sepsis Criteria: Respiratory: Increasing oxygen requirements Assessment/Plan Problem List (1) Acute respiratory failure: Impression: 89-year-old female with no past medical history of lung disease presents to the emergency department with hypoxia down to 87% on room air. at admission, she is satting in the 90s on 2 L via nasal cannula. She has a positive respiratory panel for influenza A and a chest x-ray which is suggestive of community- acquired pneumonia. She is improving, weaned to room air, now just very weak and unsteady on her feet. has no energy at all. Treating with Solumedrol 40mg TID. Will continue this for total 3 days PT and OT evaluations for safe disposition. (2) Influenza A: Impression: I am treating her with Tamiflu, and she is improving. I will continue this, it is ordered for a total of 10 doses, but will dc when she is able to leave the hospital. (3) Community acquired pneumonia: Impression: Day 2/3 azithromycin, day 2/5 rocephin. Will complete 5 days of abx with augmentil when she is ready to go home. Her hypoxia and cough are improving. (4) Depression with anxiety: Impression: home meds of sertraline 25 mg restarted. (5) Essential (primary) hypertension: Impression: Olmesartan restarted. (6) Cancer of right colon: Impression: Chronic diarrhea. not too bothersome currently. not pursuing further treatment, but doing fine. I have spent 36 minutes in the care of this patient today. This includes time [id number], review and ordering of diagnostic imaging and laboratory studies. Monitoring the patient's signs symptoms, evaluation of medication effectiveness and patient's response to treatment.
[2024-08-26] MEDS: AZITHROMYCIN INJ 500 MG in SODIUM CHLORIDE 0.9% 250 ML IV SCH (21:24)
[2024-08-27 05:36] LABS: BASOPHILS % (AUTO) 0.1 %; HCT - HEMATOCRIT 31.6 % (37.0-47.0); HGB - HEMOGLOBIN 10.3 g/dL (12.0-16.0); LYMPHOCYTES # (AUTO) 0.9 10^3/uL (1.5-3.5); LYMPHOCYTES % (AUTO) 10.9 %; MEAN CORPUSCULAR HEMOGLOBIN 31.2 pg (27.0-31.0); MEAN CORPUSCULAR HGB CONC 32.6 g/dL (32.0-36.0); MEAN CORPUSCULAR VOLUME 95.8 fL (81.0-99.0); MEAN PLATELET VOLUME 10.7 fL (7.9-10.8); MONOCYTES # (AUTO) 0.3 10^3/uL (0.0-1.0); MONOCYTES % (AUTO) 4.2 %; NEUTROPHILS # (AUTO) 6.9 10^3/uL (1.5-6.6); NEUTROPHILS % (AUTO) 84.4 %; PLT - PLATELET COUNT 186 10^3/uL (130-450); RED CELL DISTRIBUTION WIDTH 14.3 % (12.0-15.0); WHITE BLOOD COUNT 8.2 x10^3/uL (4.8-10.8)
[2024-08-27 05:54] LABS: CALCIUM 9.1 mg/dL (8.5-10.3); CREATININE 0.8 mg/dL (0.6-1.3); POTASSIUM 3.4 mmol/L (3.5-4.5)
[2024-08-27] MEDS: SODIUM CHLORIDE FLUSH 0.9% 10 ML SYRINGE IVP PRN (14:33)
--- NOTE | 2024-08-27 19:39 | PROVIDER PROGRESS NOTE ---
Subjective Prog Note Date Prog Note Date: 08/27/24 Subjective Pt reports feeling: Improved Subjective: slowly stronger, but more diarrhea today. Current Medications Current Medications Current Medications: Current Medications Generic Name Dose Route Start Last Admin Trade Name Freq PRN Reason Stop Dose Admin Acetaminophen 650 mg 08/25/24 22:01 Acetaminophen 325 Mg Tablet PO Q4HR PRN Pain 1 to 4, or Fever Albuterol/Ipratropium 3 ml 08/25/24 22:06 Ipratropium/Albuterol 3 Ml Neb INH RTQID PRN Shortness of Air/Wheezing Ceftriaxone Sodium 1 gm 08/26/24 09:00 08/27/24 08:49 Ceftriaxone 1 Gm Vial IVP 08/29/24 09:01 1 gm DAILY IVONE Administration Cholecalciferol 25 mcg 08/26/24 09:00 08/27/24 08:49 Cholecalciferol 25 Mcg Tablet PO 25 mcg DAILY IVONE Administration Guaifenesin 600 mg 08/25/24 23:00 08/27/24 08:49 Guaifenesin 600 Mg Tablet PO 600 mg BID IVONE Administration Heparin Sodium (Porcine) 5,000 unit 08/25/24 22:01 08/27/24 08:51 Heparin 5,000 Unit/Ml Vial SUBQ Not Given BID IVONE Azithromycin 500 mg/ Sodium 250 mls @ 250 mls/hr 08/26/24 21:00 08/26/24 22:25 Chloride IV 08/27/24 21:59 Infused Q24H IVONE Infusion Losartan Potassium 100 mg 08/26/24 09:00 08/27/24 08:49 Losartan 50 Mg Tablet PO 100 mg DAILY IVONE Administration Methylprednisolone 40 mg 08/25/24 22:00 08/27/24 14:33 Methylprednisolone Succinate 40 Mg/Ml Vial IVP 08/28/24 14:01 40 mg TID IVONE Administration Ondansetron HCl 4 mg 08/25/24 22:01 Ondansetron Odt 4 Mg Tablet TL Q6HR PRN Nausea / Vomiting Oseltamivir Phosphate 75 mg 08/26/24 09:00 08/27/24 08:49 Oseltamivir 75 Mg Capsule PO 08/30/24 09:01 75 mg BID IVONE Administration Oxycodone HCl 5 mg 08/25/24 22:01 Oxycodone 5 Mg Tablet PO Q4HR PRN Pain 5 to 7 Sertraline HCl 25 mg 08/26/24 09:00 08/27/24 08:49 Sertraline 25 Mg Tablet PO 25 mg DAILY IVONE Administration Sodium Chloride 10 ml 08/25/24 22:01 08/27/24 14:33 Sodium Chloride Flush 0.9% 10 Ml Syringe IVP 10 ml PRN PRN Administration NEEDED PER PROVIDER ORDERS Sodium Chloride 10 ml 08/26/24 01:00 08/27/24 08:51 Sodium Chloride Flush 0.9% 10 Ml Syringe IVP 10 ml 0100,0900,1700 IVONE Administration Objective Vital Signs/Intake & Output Reviewed Vital Signs: Yes Vital Signs: Vital Signs x48h Temp Pulse Resp BP Pulse Ox 08/27/24 16:00 36.8 C 61 20 127/57 L 97 Intake & Output: Intake & Output 08/24/24 08/25/24 08/26/24 08/27/24 23:59 23:59 23:59 23:59 Intake Total 1250 / 1250 830 / 830 650 / 650 Balance 1250 / 1250 830 / 830 650 / 650 Weight (kg) 65 kg Objective General Appearance: positive No acute distress and Alert Eyes Bilateral: positive Normal inspection ENT: positive ENT inspection nml Neck: positive Nml inspection and Trachea midline Respiratory: positive Chest non-tender and No respiratory distress; negative Wheezes, Rales or Rhonchi Cardiovascular: positive Regular rate & rhythm Abdomen: positive No distention Skin: positive Color nml and No rash Extremities: positive No pedal edema Neurologic/Psychiatric: positive Oriented x3 Lab Results 08/27/24 05:20 08/27/24 05:20 Other Labs: Lab Results x24hrs 08/27/24 Range/Units 05:20 WBC 8.2 (4.8-10.8) x10^3/uL RBC 3.30 L (4.20-5.40) 10^6/uL Hgb 10.3 L (12.0-16.0) g/dL Hct 31.6 L (37.0-47.0) % MCV 95.8 (81.0-99.0) fL MCH 31.2 H (27.0-31.0) pg MCHC 32.6 (32.0-36.0) g/dL RDW 14.3 (12.0-15.0) % Plt Count 186 (130-450) 10^3/uL MPV 10.7 (7.9-10.8) fL Neut # (Auto) 6.9 H (1.5-6.6) 10^3/uL Lymph # (Auto) 0.9 L (1.5-3.5) 10^3/uL Collin # (Auto) 0.3 (0.0-1.0) 10^3/uL Eos # (Auto) 0.0 (0.0-0.7) 10^3/uL Baso # (Auto) 0.0 (0.0-0.1) 10^3/uL Absolute Nucleated RBC 0.00 x10^3/uL Nucleated RBC % 0.0 /100WBC Sodium 137 (135-145) mmol/L Potassium 3.4 L (3.5-4.5) mmol/L Chloride 107 (101-111) mmol/L Carbon Dioxide 23 (21-32) mmol/L Anion Gap 7.0 (6-13) BUN 35 H (6-20) mg/dL Creatinine 0.8 (0.6-1.3) mg/dL Estimated GFR (MDRD) 68 L (>89) Glucose 162 H (74-104) mg/dL Calcium 9.1 (8.5-10.3) mg/dL Sepsis Event Note (H) Evaluation Current Stage of Sepsis: Resolved Possible source of Sepsis: positive Pulmonary Sepsis Criteria Sepsis Criteria: Respiratory: Increasing oxygen requirements Assessment/Plan Problem List (1) Acute respiratory failure: Impression: 89-year-old female with no past medical history of lung disease presents to the emergency department with hypoxia down to 87% on room air. at admission, she is satting in the 90s on 2 L via nasal cannula. She has a positive respiratory panel for influenza A and a chest x-ray which is suggestive of community- acquired pneumonia. She is improving, weaned to room air, now just very weak and unsteady on her feet. has no energy at all. Treating with Solumedrol 40mg TID. Will continue this for total 3 days PT and OT evaluations for safe disposition. She is medically clear today. (2) Influenza A: Impression: I am treating her with Tamiflu, and she is improving. I will continue this, it is ordered for a total of 10 doses, but will dc when she is able to leave the hospital. (3) Community acquired pneumonia: Impression: Day 2/3 azithromycin, day 3/5 rocephin. Will complete 5 days of abx with augmentin when she is ready to go home. Her hypoxia is resolved and cough is improving. (4) Depression with anxiety: Impression: home meds of sertraline 25 mg restarted. (5) Essential (primary) hypertension: Impression: Olmesartan restarted. (6) Cancer of right colon: Impression: Chronic diarrhea. bothering her more today now that her po intake is more. She is requesting something for this. I have spent 26 minutes in the care of this patient today. This includes time [id number], review and ordering of diagnostic imaging and laboratory studies. Monitoring the patient's signs symptoms, evaluation of medication effectiveness and patient's response to treatment.
[2024-08-27] MEDS: DIPHENOX/ATROPINE 2.5/0.025 MG TABLET PO PRN (20:50)
[2024-08-28 05:04] LABS: BASOPHILS % (AUTO) 0.1 %; HCT - HEMATOCRIT 31.7 % (37.0-47.0); HGB - HEMOGLOBIN 10.4 g/dL (12.0-16.0); LYMPHOCYTES # (AUTO) 1.3 10^3/uL (1.5-3.5); LYMPHOCYTES % (AUTO) 15.2 %; MEAN CORPUSCULAR HEMOGLOBIN 31.6 pg (27.0-31.0); MEAN CORPUSCULAR HGB CONC 32.8 g/dL (32.0-36.0); MEAN CORPUSCULAR VOLUME 96.4 fL (81.0-99.0); MEAN PLATELET VOLUME 10.9 fL (7.9-10.8); MONOCYTES # (AUTO) 0.5 10^3/uL (0.0-1.0); MONOCYTES % (AUTO) 5.9 %; NEUTROPHILS # (AUTO) 6.6 10^3/uL (1.5-6.6); NEUTROPHILS % (AUTO) 78.2 %; PLT - PLATELET COUNT 221 10^3/uL (130-450); RED BLOOD COUNT 3.29 10^6/uL (4.20-5.40); RED CELL DISTRIBUTION WIDTH 14.4 % (12.0-15.0); WHITE BLOOD COUNT 8.4 x10^3/uL (4.8-10.8)
[2024-08-28 05:29] LABS: CALCIUM 9.2 mg/dL (8.5-10.3); CREATININE 0.8 mg/dL (0.6-1.3); POTASSIUM 3.4 mmol/L (3.5-4.5)
[2024-08-28] MEDS: predniSONE 20 MG TABLET PO SCH (07:38)
[2024-08-28] MEDS: POTASSIUM CHLORIDE 20 MEQ TABLET PO ONE (11:47)
[2024-08-28] MEDS: AMOX/CLAV 875 MG/125 MG TABLET PO SCH (11:47)
--- NOTE | 2024-08-28 13:40 | PT Plan of Care ---
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 MEDICAL/SURGICAL HISTORY Medical History (Updated 08/25/24 @ 20:40 by WES Espino) Nightmare disorder Unspecified intracapsular fracture of right femur, sequela Impingement syndrome of left shoulder Syncope Back pain Dehydration Cancer of right colon Mastoiditis Hypertension Fracture of right hip Arthritis Surgical History (Updated 07/07/24 @ 10:20 by Olya Torrez RN) H/O colectomy History of carpal tunnel release BALANCE/FUNCTIONAL RESULTS Sitting Balance: Good Standing Balance: Fair Tinetti Composite Score (Balance + Gait): 22 Tinetti Assessment Interpretation: Moderate Fall Risk ASSESSMENT Assessment: The pt is an 89 y/o F who was arrived to the ED from home on 08/25/24 due to progressive weakness and fatigue, she had gone to the walk-in clinic the day before for s/s of an URI and was prescribed antibiotics which she was unable 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 She was hospitalized with ARF due to influenza A and community acquired PNA. Please see chart for medical hx. The pt was received resting comfortably supine in bed and presented today with fair B UE and LE strength, decreased activity tolerance, and mild standing balance impairments which limited her safety and tolerance with functional mobility. At this time recommend continued skilled PT intervention while in the acute setting and DC home with HH therapy as long as her caregiver is available to resume assistance AASHISH, otherwise recommend DC to SNF until there is availability for consistent assistance in the home. This plan was discussed with the pt and she was in agreement with this. At the end of the session the pt was sitting up in a chair with call light in reach, chair alarm in place and on, and all needs met while eating her lunh. RN and PA updated on pt's status and DC rec. PATIENT/FAMILY GOALS Patient/Family Goals: To be strong enough to return home GOALS Improve supine to sit to:: Independent Improve sit to stand to:: Modified Independent Improve pivot transfer ability to:: Modified Independent Improve sit to supine to:: Independent Advance Assistive Device to:: Four Wheeled Walker Increase distance walked to (in feet):: 150 PLAN Frequency: 1-2x/day Duration: Until goals are met DISCHARGE RECOMMENDATIONS [facility] Support/Services Needed: Home Health P.T. DC Equipment Recommended: Front wheeled walker Other Discharge Equipment: pt owns all recommended DME Transport Needs at Discharge: Personal vehicle Other: to DC home safely with HH there needs to be a plan that a CG is available to begin AASHISH, otherwise DC to SNF. She would also benefit from an increase in the total weekly time she has a CG.
--- NOTE | 2024-08-28 18:01 | PROVIDER PROGRESS NOTE ---
Subjective Prog Note Date Prog Note Date: 08/28/24 Subjective Pt reports feeling: Improved Subjective: She feels better every day and stronger every day. She was able to see PT today and should be strong enough to go home but there are some concerns about having caregivers present in the home as her caregivers have been ill. Current Medications Current Medications Current Medications: Current Medications Generic Name Dose Route Start Last Admin Trade Name Freq PRN Reason Stop Dose Admin Acetaminophen 650 mg 08/25/24 22:01 Acetaminophen 325 Mg Tablet PO Q4HR PRN Pain 1 to 4, or Fever Albuterol/Ipratropium 3 ml 08/25/24 22:06 Ipratropium/Albuterol 3 Ml Neb INH RTQID PRN Shortness of Air/Wheezing Amoxicillin/Clavulanate Potassium 1 tab 08/28/24 11:00 08/28/24 11:47 Amox/Clav 875 Mg/125 Mg Tablet PO 08/30/24 21:01 1 tab BID IVONE Administration Cholecalciferol 25 mcg 08/26/24 09:00 08/28/24 07:39 Cholecalciferol 25 Mcg Tablet PO 25 mcg DAILY IVONE Administration Diphenoxylate HCl/Atropine 1 tab 08/27/24 19:36 08/27/24 20:50 Diphenox/Atropine 2.5/0.025 Mg Tablet PO 1 tab QID PRN Administration Diarrhea Guaifenesin 600 mg 08/25/24 23:00 08/28/24 07:39 Guaifenesin 600 Mg Tablet PO 600 mg BID IVONE Administration Heparin Sodium (Porcine) 5,000 unit 08/25/24 22:01 08/28/24 07:39 Heparin 5,000 Unit/Ml Vial SUBQ Not Given BID IVONE Losartan Potassium 100 mg 08/26/24 09:00 08/28/24 07:38 Losartan 50 Mg Tablet PO 100 mg DAILY IVONE Administration Ondansetron HCl 4 mg 08/25/24 22:01 Ondansetron Odt 4 Mg Tablet TL Q6HR PRN Nausea / Vomiting Oseltamivir Phosphate 75 mg 08/26/24 09:00 08/28/24 07:38 Oseltamivir 75 Mg Capsule PO 08/30/24 09:01 75 mg BID IVONE Administration Oxycodone HCl 5 mg 08/25/24 22:01 Oxycodone 5 Mg Tablet PO Q4HR PRN Pain 5 to 7 Prednisone 40 mg 08/28/24 08:00 08/28/24 07:38 Prednisone 20 Mg Tablet PO 40 mg DAILYWM IVONE Administration Sertraline HCl 25 mg 08/26/24 09:00 08/28/24 07:39 Sertraline 25 Mg Tablet PO 25 mg DAILY IVONE Administration Objective Vital Signs/Intake & Output Reviewed Vital Signs: Yes Vital Signs: Vital Signs x48h Temp Pulse Resp BP Pulse Ox 08/28/24 16:09 36.7 C 59 L 20 143/59 H 97 Intake & Output: Intake & Output 08/25/24 08/26/24 08/27/24 08/28/24 23:59 23:59 23:59 23:59 Intake Total 1250 / 1250 830 / 830 1400 / 1400 480 / 480 Balance 1250 / 1250 830 / 830 1400 / 1400 480 / 480 Weight (kg) 65 kg Objective General Appearance: positive No acute distress and Alert Eyes Bilateral: positive Normal inspection ENT: positive ENT inspection nml Neck: positive Trachea midline Respiratory: positive Chest non-tender, No respiratory distress and Breath sounds nml Cardiovascular: positive Regular rate & rhythm Abdomen: positive Non-tender Back: positive Nml inspection Skin: positive Color nml Extremities: positive Non-tender and No pedal edema Neurologic/Psychiatric: positive Oriented x3 Lab Results 08/28/24 04:50 08/28/24 04:50 Other Labs: Lab Results x24hrs 08/28/24 Range/Units 04:50 WBC 8.4 (4.8-10.8) x10^3/uL RBC 3.29 L (4.20-5.40) 10^6/uL Hgb 10.4 L (12.0-16.0) g/dL Hct 31.7 L (37.0-47.0) % MCV 96.4 (81.0-99.0) fL MCH 31.6 H (27.0-31.0) pg MCHC 32.8 (32.0-36.0) g/dL RDW 14.4 (12.0-15.0) % Plt Count 221 (130-450) 10^3/uL MPV 10.9 H (7.9-10.8) fL Neut # (Auto) 6.6 (1.5-6.6) 10^3/uL Lymph # (Auto) 1.3 L (1.5-3.5) 10^3/uL [place] # (Auto) 0.5 (0.0-1.0) 10^3/uL Eos # (Auto) 0.0 (0.0-0.7) 10^3/uL Baso # (Auto) 0.0 (0.0-0.1) 10^3/uL Absolute Nucleated RBC 0.00 x10^3/uL Nucleated RBC % 0.0 /100WBC Sodium 139 (135-145) mmol/L Potassium 3.4 L (3.5-4.5) mmol/L Chloride 109 (101-111) mmol/L Carbon Dioxide 23 (21-32) mmol/L Anion Gap 7.0 (6-13) BUN 34 H (6-20) mg/dL Creatinine 0.8 (0.6-1.3) mg/dL Estimated GFR (MDRD) 68 L (>89) Glucose 142 H (74-104) mg/dL Calcium 9.2 (8.5-10.3) mg/dL Sepsis Event Note (H) Evaluation Current Stage of Sepsis: Resolved Possible source of Sepsis: positive Pulmonary Sepsis Criteria Sepsis Criteria: Respiratory: Increasing oxygen requirements Assessment/Plan Problem List (1) Acute respiratory failure: Impression: 89-year-old female with no past medical history of lung disease presents to the emergency department with hypoxia down to 87% on room air. at admission, she is satting in the 90s on 2 L via nasal cannula. She has a positive respiratory panel for influenza A and a chest x-ray which is suggestive of community- acquired pneumonia. She is improving, weaned to room air, now just very weak and unsteady on her feet. has no energy at all. She has completed a 3 d course of solumedrol. PT and OT evaluations for safe disposition. She was seen by PT today and is ok to go home, but may need [facility] for respite due to caregiver availability. She is medically clear yesterday, this is an avoidable day awaitng safe discharge. (2) Influenza A: Impression: I am treating her with Tamiflu, and she is improving. I will continue this, it is ordered for a total of 10 doses, but will dc when she is able to leave the hospital. (3) Community acquired pneumonia: Impression: 3 days of zithromax complete, needs 5 days of rocephin/augmentin. I have changed her to po as she does not want an IV in place. Her hypoxia is resolved and cough is improving. (4) Depression with anxiety: Impression: home meds of sertraline 25 mg restarted. (5) Essential (primary) hypertension: Impression: Olmesartan restarted. (6) Cancer of right colon: Impression: Chronic diarrhea. bothering her more now that her po intake is more. I have ordered lomotil PRN I have spent 26 minutes in the care of this patient today. This includes time [id number], review and ordering of diagnostic imaging and laboratory studies. Monitoring the patient's signs symptoms, evaluation of medication effectiveness and patient's response to treatment.
[2024-08-29 09:01] VITALS: O2SAT 97
--- NOTE | 2024-08-29 11:53 | Discharge Summary ---
"Discharge Summary Admit Date: 08/25/24 Discharge Date: 08/29/24 Discharging Provider: Alayna Marino PA-C Primary Care Provider: Flynn Code Status: Do Not Attempt Resuscitation DIAGNOSES Discharge Diagnoses with Status of Each Condition: Hypoxic respiratory failure, resolved Influenza A infection, resolved Community-acquired pneumonia, treated and resolved Depression with anxiety, chronic Essential hypertension, chronic Right colon cancer, status postresection with chronic diarrhea. HPI History of Present Illness: presents to the ED via EMS for 3 d hx of SOA and fatigue and cough. lives alone but caregivers come in and some have been sick. She thinks that they have had COVID., She does not get flu or covid shots. She has longstanding loose stools since even before her right colon resection for cancer in 2021. Otherwise she does well with minimal problems. Currently she is too weak and tired to care for herself. Does not have POLST. Son in [place] is her medical decision maker. We do not have that information on the chart. CONSULTS | PROCEDURES Procedures: Chest x-ray shows mild bibasilar predominant reticulonodular opacities which are nonspecific and may be secondary to edema versus a viral or atypical pneumonia, possibly aspiration. HOSPITAL COURSE Hospital Course: (1) Acute respiratory failure: 89-year-old female with no past medical history of lung disease presents to the emergency department with hypoxia down to 87% on room air. at admission, she is satting in the 90s on 2 L via nasal cannula. She has a positive respiratory panel for influenza A and a chest x-ray which is suggestive of community- acquired pneumonia. She is improving, weaned to room air, now just very weak and unsteady on her feet. has no energy at all. She has completed a 3 d course of solumedrol. PT and OT evaluations for safe disposition. She was seen by PT today and is ok to go home, but may need [facility] for respite due to caregiver availability. (2) Influenza A: I am treating her with Tamiflu, and she is improving. Continued while inpatient, discontinued on discharge. . (3) Community acquired pneumonia: 3 days of zithromax complete, needs 5 days of rocephin/augmentin. Her hypoxia is resolved and cough is improving. Adequate antibiotic therapy received while inpatient. (4) Depression with anxiety: home meds of sertraline 25 mg restarted. (5) Essential (primary) hypertension: Olmesartan restarted. (6) Cancer of right colon: Chronic diarrhea. bothering her more now that her po intake is more. I have ordered lomotil PRN ALLERGIES Allergies Allergy/AdvReac Type Severity Reaction Status Date / Time ergot alkaloids Allergy Rash Verified 08/25/24 17:53 naproxen AdvReac Intermediate Cramps Verified 08/25/24 17:53 MEDICATIONS Ambulatory Orders Medication Instructions Recorded Confirmed hydroxyzine HCl 25 mg tablet 25 mg PO UD PRN As Needed Per 03/30/24 08/26/24 Provider Orders multivitamin 1 tab PO DAILY 05/03/24 08/26/24 olmesartan 40 mg tablet 40 mg PO QDAY 90 days #90 tabs 05/03/24 08/26/24 sertraline 25 mg tablet 25 mg PO QDAY 90 days #90 tabs 05/03/24 08/26/24 cholecalciferol (vitamin D3) 25 25 mcg PO QDAY 08/08/24 08/26/24 mcg (1,000 unit) chewable tablet (Vitamin D3) meloxicam 15 mg tablet 15 mg PO QDAY #90 tabs 08/08/24 08/26/24 gabapentin 100 mg capsule 100 mg PO TID #90 caps 08/26/24 PHYSICAL EXAM AT DISCHARGE Physical Exam Other/Comments: General Appearance: positive No acute distress and Alert Eyes Bilateral: positive Normal inspection ENT: positive ENT inspection nml Neck: positive Trachea midline Respiratory: positive Chest non-tender, No respiratory distress and Breath sounds nml Cardiovascular: positive Regular rate & rhythm Abdomen: positive Non-tender Back: positive Nml inspection Skin: positive Color nml Extremities: positive Non-tender and No pedal edema Neurologic/Psychiatric: positive Oriented x3 LABS 08/28/24 04:50 08/28/24 04:50 SEPSIS Current Stage of Sepsis: Resolved Possible source of Sepsis: Pulmonary FOLLOW UP Follow Up: PCP, Dr. Hollis 7 to 10 days postdischarge for recheck. TIME SPENT Time Spent in Discharge (Minutes): 32 Discharge Plan Discharge Patient Disposition: Home Health Service Condition: Good Prescriptions: Continued olmesartan 40 mg tablet 40 mg PO QDAY 90 Days Qty: 90 3RF sertraline 25 mg tablet 25 mg PO QDAY 90 Days Qty: 90 3RF gabapentin 100 mg capsule 100 mg PO TID Qty: 90 2RF multivitamin Tablet 1 tab PO DAILY hydroxyzine HCl 25 MG tablet 25 mg PO UD PRN (Reason: As Needed Per Provider Orders) cholecalciferol (vitamin D3) [Vitamin D3] 25 mcg (1,000 unit) tablet,chewable 25 mcg PO QDAY meloxicam 15 mg tablet 15 mg PO QDAY Qty: 90 3RF Activity Restrictions: Activity as Tolerated Diet: Regular Health Concerns: You came into the hospital with a very bad cold. You are requiring oxygen because your lungs were not working well enough. Your respiratory testing was positive for influenza. You were very weak and tired and unable to care for yourself. Since you have been in the hospital you have been able to wean off oxygen. We have treated you for influenza, inflammation in your lungs and for possible pneumonia. All of these medications can be stopped when you leave the hospital. You seem to be getting better. You are still very weak and tired and will need lots of rest at home. Make sure you are drinking plenty of fluids. Make sure that someone is checking in with you every day to make sure that you are doing well. When you leave the hospital you can resume all of your normal medications. This includes your blood pressure medication your thyroid medication and your depression medication. I am not adding any new medications to your regimen when you leave the hospital. Your goal is to get back to your previous level of function. To help you do this we have ordered home health to come into your house and have physical therapy and Occupational Therapy work with you from home health. I see that you have been seeing outpatient physical therapy. I think once you get a little bit stronger you can continue this, but for now best to stay home and rest. I recommend that you see Dr. Hollis in the next week to 10 days as a follow-up. You want him to listen to your lungs and make sure that everything looks good with your health, and that you are continuing to recover from this illness. Care Plan Goals: Home health physical therapy and Occupational Therapy to assess home environment for safety and assist with level of function Return to previous level of independent function with caregiver help twice a week No change in medications. No new medications. Assessment: Acute hypoxic respiratory failure secondary to influenza A and community- acquired pneumonia. Treated with Tamiflu, azithromycin and Rocephin. Print Language: Vincentian Patient Instructions: Flu Follow-up Care: Erwin Pruett MD [Primary Care Provider] -"
[2024-08-29 12:27] VITALS: BP 164/80; TEMP 97.7
[2024-08-29] MEDS: ACETAMINOPHEN 325 MG TABLET PO PRN (12:30)
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
--- NOTE | 2024-08-29 14:56 | OT Plan of Care ---
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 OT eval completed per MD orders. A&Ox4 - Performed simple ADL's and functional mobility using 4WW MOD I - No overt LOB noted. Pt provided with education on compensatory techniques and safety for home D/c for ADL and IADL's - Pt in agreement and good understanding. No further skilled OT needed at acute level of care. Rec d/c home with HHOT and increased caregiver hours prn. OT Inpatient Plan PLAN Treatment Frequency: Evaluation only, no further O.T. -Discharge Recommendations Discharge Location: Previous Living Situation Transport Needs at Discharge: Personal vehicle
== END 2024-08-29 14:50 | disposition home health service (06) | DRG 189 ==
LOC: ED 17:38 → MS3 20:37 → MS2 21:24
PROVIDERS: ADMIT Physician Assistant Medical; ATTEND Physician Assistant Medical
DX: Z90.49 Acquired absence of other specified parts of digestive tract; E03.9 Hypothyroidism, unspecified; K52.9 Noninfective gastroenteritis and colitis, unspecified; F32.A Depression, unspecified; E87.1 Hypo-osmolality and hyponatremia; Z85.038 Personal history of other malignant neoplasm of large intestine; J96.01 Acute respiratory failure with hypoxia; J10.00 Influenza due to other identified influenza virus with unspecified type of pneumonia; Z20.822 Contact with and (suspected) exposure to COVID-19; Z66 Do not resuscitate; F41.9 Anxiety disorder, unspecified; I10 Essential (primary) hypertension; F41.8 Other specified anxiety disorders; A41.9 Sepsis, unspecified organism; R53.1 Weakness; K59.09 Other constipation